=== PATIENT | female | born 1945 | race African-American/Black ===

== ENCOUNTER 2017-06-29 20:09 | Emergency (ER) | payer OTHER, MEDICARE ==
[~2017-06-29] VITALS: Ht 162.6 cm; Wt 93.0 kg
[~2017-06-29 20:09] MED LIST: ASPI-612 PO; ESTROTEST PO; EZET10TA18 PO; LISI10TA2 PO; MECL12.52 PO; METF500T9 PO; MULT-212 PO; VALS160T3 PO
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
[2017-06-29 21:28] LABS: BILIRUBIN,URINE NEG (NEG); CLARITY,URINE CLEAR; COLOR,URINE YELLOW; GLUCOSE,URINE NEG (NEG); NITRITE,URINE NEG (NEG); UROBILINOGEN,URINE 1 mg/dL (0.2 mg/dL)
[2017-06-29 21:29] LABS: BACTERIA,URINE MOD /HPF (0-FEW); SQUAMOUS EPITHELIAL CELL,UR MANY /LPF
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
[2017-06-29] MEDS ORDERED: CEPH-264 PO (21:47)
[2017-06-29] MEDS ORDERED: HYDR-79 PO (21:48)
[2017-06-29 21:59] VITALS: BP 150/61
== END 2017-06-29 22:00 | disposition home or self-care (01) ==
LOC: ER 20:09
DX: S13.9XXA Sprain of joints and ligaments of unspecified parts of neck, initial encounter (principal); E78.00 Pure hypercholesterolemia, unspecified; I10 Essential (primary) hypertension; E11.9 Type 2 diabetes mellitus without complications; I25.10 Atherosclerotic heart disease of native coronary artery without angina pectoris; H54.62 Unqualified visual loss, left eye, normal vision right eye; N39.0 Urinary tract infection, site not specified; Z86.73 Personal history of transient ischemic attack (TIA), and cerebral infarction without residual deficits; Z88.8 Allergy status to other drugs, medicaments and biological substances; V43.62XA Car passenger injured in collision with other type car in traffic accident, initial encounter; Y93.89 Activity, other specified; Y99.8 Other external cause status; Y92.488 Other paved roadways as the place of occurrence of the external cause
CPT/HCPCS: 72125; 81001; 87086; 99285-25

== ENCOUNTER → 2017-09-12 | Outpatient (CLI) | payer MEDICARE, OTHER ==
[~2017-09-12] MED LIST changes: +CEPH-264 PO; +HYDR-79 PO
[2017-09-12 12:29] LABS: ALBUMIN 3.6 g/dL (3.4-5.0); ALBUMIN/GLOBULIN RATIO 0.9 (1.0-1.7); CALCIUM 9.6 mg/dL (8.5-10.1); GFR 66.5; TOTAL BILIRUBIN 0.9 mg/dL (0.2-1.0); TOTAL PROTEIN 7.5 g/dL (6.4-8.2)
[2017-09-13 02:13] LABS: HEMOGLOBIN A1C 7.5 % (4.8-5.6)
== END | disposition home or self-care (01) ==
LOC: LAB 11:05
PROVIDERS: ATTEND Nurse Practitioner
DX: E78.5 Hyperlipidemia, unspecified (principal); I10 Essential (primary) hypertension; E11.9 Type 2 diabetes mellitus without complications; E78.00 Pure hypercholesterolemia, unspecified; Z83.3 Family history of diabetes mellitus; Z90.49 Acquired absence of other specified parts of digestive tract; Z90.722 Acquired absence of ovaries, bilateral; Z90.710 Acquired absence of both cervix and uterus
CPT/HCPCS: 36415; 80053; 80061; 83036

== ENCOUNTER 2018-01-12 10:58 | Inpatient (IN) | payer MEDICARE, BC ==
[~2018-01-12] VITALS: Ht 162.6 cm; Wt 93.7 kg
[~2018-01-12 10:58] MED LIST changes: +HYDR-1179 PO; -HYDR-79 PO
--- NOTE | 2018-01-12 11:42 | PHYS DOC ---
Past History Past Medical History: Arrhythmia, Diabetes, High Cholesterol, Hypertension Past Surgical History: Appendectomy, Cholecystectomy, Hysterectomy Alcohol Use: None Drug Use: None Adult General Chief Complaint Chief Complaint: CHEST PAIN HPI HPI Patient is a 72 year old female with history of hypertension, dyslipidemia, diabetes, family history of coronary artery disease who sent from her primary care physician office because of chest pain. Patient complaining of sudden onset of substernal pain since this morning as a constant aching pain pain with episodes of pressure pain that last for a few seconds and repeated frequently with radiation to left shoulder. Patient complaining of shortness of breath without palpitation, nausea, fever and chills, dizziness. Patient was seen by her primary care physician and after EKG and 324 mg of aspirin sent to ER for more evaluation. Patient denies history of coronary artery disease. Review of Systems Review of Systems Constitutional: Denies fever or chills [] Eyes: Denies change in visual acuity, redness, or eye pain [] HENT: Denies nasal congestion or sore throat [] Respiratory: Denies cough or shortness of breath [] Cardiovascular: No additional information not addressed in HPI [] GI: Denies abdominal pain, nausea, vomiting, bloody stools or diarrhea [] : Denies dysuria or hematuria [] Musculoskeletal: Denies back pain or joint pain [] Integument: Denies rash or skin lesions [] Neurologic: Denies headache, focal weakness or sensory changes [] Endocrine: Denies polyuria or polydipsia [] All other systems were reviewed and found to be within normal limits, except as documented in this note. Current Medications Current Medications Current Medications Medications (Trade) Dose Ordered Sig/Gerald Start Time Stop Time Status Last Admin Dose Admin Famotidine (Pepcid Vial) 20 mg 1X ONCE 01/12/18 12:00 01/12/18 12:01 01/12/18 11:36 20 MG Allergies Allergies Allergies Coded Allergies Type Severity Reaction Last Updated Verified Cvevwbo-Dua-Joo Reductase Inhibitor Allergy Intermediate 01/12/18 Yes Physical Exam Physical Exam Constitutional: Well developed, well nourished, mild distress, non-toxic appearance. [] HENT: Normocephalic, atraumatic, oropharynx moist, no oral exudates, nose normal. [] Eyes: PERRLA, EOMI, conjunctiva normal, no discharge. [] Neck: Normal range of motion, no tenderness, supple, no stridor. [] Cardiovascular:Heart rate regular rhythm, no murmur [] Lungs & Thorax: Bilateral breath sounds clear to auscultation [] Abdomen: Bowel sounds normal, soft, no tenderness, no masses, no pulsatile masses. [] Skin: Warm, dry, no erythema, no rash. [] Back: No tenderness, no CVA tenderness. [] Extremities: No tenderness, no cyanosis, no clubbing, ROM intact, no edema. [] Neurologic: Alert and oriented X 3, normal motor function, normal sensory function, no focal deficits noted. [] Psychologic: Affect normal, judgement normal, mood normal. [] Current Patient Data Vital Signs Vital Signs Date Time Temp Pulse Resp B/P (MAP) Pulse Ox O2 Delivery O2 Flow Rate FiO2 01/12/18 11:17 97.6 72 18 98 Room Air EKG EKG KG interpreted by me. EKG at 1110 showed sinus bradycardia at rate of 49, normal interval and axis, poor R-wave progress in anteroseptal leads, no acute ST and T-wave abnormalities Radiology/Procedures Radiology/Procedures [address] [address] IMAGING REPORT Signed PATIENT: ZACHARIAH RIOS ACCOUNT: [id number] : 1945 LOCATION: ER AGE: 72 SEX: F EXAM STATUS: REG ER ORD. PHYSICIAN: CHUY ANTHONY MD REASON: chest pain PROCEDURE: PORTABLE CHEST 1V Portable chest, 01/12/2018: HISTORY: Chest pain Comparison is made to a study from 02/12/2016. The heart size and pulmonary vascularity are normal. There is tortuosity of the thoracic aorta. No pulmonary infiltrate is seen. There is no evidence of pleural fluid. IMPRESSION: 1. Mild aortic ectasia. 2. No acute cardiopulmonary abnormality is detected. Electronically signed by: Deacon Rivas MD (01/12/2018 11:44 AM) [facility] DICTATED AND SIGNED BY: DEACON RIVAS MD DATE: 01/12/18 [id number] CC: CHUY ANTHONY MD; LUCITA NORTH MD ~ Course & Med Decision Making Course & Med Decision Making Pertinent Labs and Imaging studies reviewed. (See chart for details) Evaluation of patient in ER showed 72-year-old female patient with multiple cardiac risk factors and complaining of chest pain since this morning and left arm pain since yesterday. EKG did not show acute ST and T-wave abnormalities and patient had unremarkable labs. Patient denied chest pain in ER. Dr. Parker accepted admission at 1130. Dragon Disclaimer Dragon Disclaimer This electronic medical record was generated, in whole or in part, using a voice recognition dictation system. Departure Departure: Impression: Primary Impression: Acute chest pain Disposition: ADMITTED INPATIENT (at 11:30) Admitting Physician: Tarah Parker (accepted admission at 11:30) Condition: IMPROVED Referrals: LUCITA NORTH MD (PCP) CHUY ANTHONY MD Jan 12, 2018 11:42
--- NOTE | 2018-01-12 11:44 | EKG ---
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
[2018-01-12 11:47] LABS: BASO % 0 % (0-3); EOS # 0.2 x10^3/uL (0.0-0.7); EOS % 2 % (0-3); HEMATOCRIT 43.1 % (36.0-47.0); HEMOGLOBIN 14.2 g/dL (12.0-15.5); LYMPH # 1.2 x10^3/uL (1.0-4.8); LYMPH % 18 % (24-48); MEAN CORPUSCULAR HEMOGLOBIN 28 pg (25-35); MEAN CORPUSCULAR HGB CONC 33 g/dL (31-37); MEAN CORPUSCULAR VOLUME 85 fL (79-100); MONO # 0.4 x10^3/uL (0.0-1.1); MONO % 7 % (0-9); NEUT # 4.8 x10^3uL (1.8-7.7); NEUT % 73 % (31-73); PLATELET COUNT 157 x10^3/uL (140-400); RED BLOOD COUNT 5.06 x10^6/uL (3.50-5.40); RED CELL DISTRIBUTION WIDTH 13.8 % (11.5-14.5); WHITE BLOOD COUNT 6.6 x10^3/uL (4.0-11.0)
--- NOTE | 2018-01-12 11:48 | RAD ---
Portable chest, 01/12/2018: HISTORY: Chest pain Comparison is made to a study from 02/12/2016. The heart size and pulmonary vascularity are normal. There is tortuosity of the thoracic aorta. No pulmonary infiltrate is seen. There is no evidence of pleural fluid. IMPRESSION: 1. Mild aortic ectasia. 2. No acute cardiopulmonary abnormality is detected. Electronically signed by: Deacon Guaman MD (01/12/2018 11:44 AM) [facility]
[2018-01-12] MEDS ORDERED: FAMOTIDINE 20 MG/2 ML VIAL IVP ONE (12:00)
[2018-01-12 12:06] LABS: ALBUMIN 3.6 g/dL (3.4-5.0); CALCIUM 9.4 mg/dL (8.5-10.1); CREATININE 0.9 mg/dL (0.6-1.0); GFR 74.9; POTASSIUM 4.3 mmol/L (3.5-5.1); TOTAL BILIRUBIN 0.6 mg/dL (0.2-1.0); TOTAL PROTEIN 7.3 g/dL (6.4-8.2)
[2018-01-12] MEDS ORDERED: LISI1TAB3 PO (13:07)
[2018-01-12] MEDS ORDERED: UBID100C26 PO (13:07)
[2018-01-12] MEDS ORDERED: ROSU10TA25 PO (13:07)
[2018-01-12 13:17] VITALS: BP 134/83
[2018-01-12 15:18] VITALS: BP 111/73
--- NOTE | 2018-01-12 15:51 | HP ---
ADMIT DATE: 01/12/2018 HISTORY OF PRESENT ILLNESS: The patient is a 72-year-old -N[place]e female patient who came to the Emergency Room complaining of burning retrosternal chest pain that she describes as burning associated with diaphoresis. She stated that her complaint started the night before with tingling and numbness in her left arm that apparently has eventually subsided. This morning, she also developed retrosternal chest pain that she describes as burning and had an episode of diaphoresis at home and again when she went to shopping at [employer] from there she drove her car to her primary care physician, Dr. Dave, who did an EKG and gave her 4 baby aspirin and sent her to the Emergency Room of [facility] where she was evaluated. Her EKG showed that she was in sinus bradycardia at a rate of 49 beats per minute with poor R-wave progression in anteroseptal leads, no acute ST-T changes. She apparently had her first set of cardiac enzyme showed that her troponin to be less than 0.017 and was admitted to do two more sets of cardiac enzyme, checked her fasting lipid profile and consult the mumps developer. PAST MEDICAL HISTORY: Significant for hypertension, type 2 diabetes mellitus, and hyperlipidemia as well as osteoarthritis. 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 PAST SURGICAL HISTORY: Significant for hysterectomy, cholecystectomy, appendectomy, and colonoscopy. ALLERGIES: She is allergic to STATINS. She developed leg cramps. MEDICATIONS: She is currently on following medications: She is on Crestor 10 mg at bedtime, lisinopril/hydrochlorothiazide 10/12.5 mg once a day, aspirin 81 mg once a day, metformin 500 mg daily with breakfast, multivitamin with mineral 1 tablet once a day, CoQ10 100 mg once a day and Estratest 1 capsule p.o. daily as hormone replacement therapy. FAMILY HISTORY: She has 7 sisters and 7 brothers, all , except 3 brothers and 2 sisters. Her father of aortic aneurysm rupture at the age of 59. Mother at age of 85 because of old age, according to her. SOCIAL HISTORY: She is , has 1 son and 1 daughter. She does not smoke, drink alcohol, or use any recreational drugs. 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 REVIEW OF SYSTEMS: The patient was born blind in her left eye; however, denied any cataract, glaucoma, or macular degeneration. She did complain of vertigo occasionally. She has dysphagia to solids, although she did very well on her video swallowing evaluation. She denied any nausea, vomiting, diarrhea, or constipation. Denied any hematemesis, melena, or hematochezia. Denied any dysuria, frequency, or hematuria. Did complain of chest pain, but denied any orthopnea or paroxysmal nocturnal dyspnea. Denied any cough, phlegm, or hemoptysis. Denied any chills, rigors, or fever. PHYSICAL EXAMINATION: GENERAL: On examining her, she looked well and was clearly in no apparent respiratory distress. No pallor, jaundice, cyanosis, or thyromegaly. No jugular venous distention. No limb edema. VITAL SIGNS: Her heart rate was 72, blood pressure was 127/70, temperature was 97.6, respiratory rate was 16, and oxygen saturation was 98%. HEAD, EYES, EARS, NOSE, AND THROAT: Normocephalic, atraumatic. NECK: Supple. HEART: Showed normal first and second heart sounds. No gallop, rub, or murmur. CHEST: Clear to auscultation. No crepitation or rhonchi. ABDOMEN: Distended, soft, nontender. NEUROLOGIC: She is blind in her left eye. Otherwise, all her cranial nerves are intact. She moves all her extremities without difficulty. She ambulates without assistance or assistive devices. LABORATORY DATA AND IMAGING: Her lab work on admission showed a white cell count of 6600, hemoglobin 14, hematocrit 43, MCV 85, and a platelet count of 157,000 with normal amount of differential. Her serum sodium was 141, potassium 4.3, chloride 103, bicarbonate 28, anion gap of 10, BUN 12, creatinine 0.9, estimated GFR is 75 mL per minute. Her glucose was 128, calcium was 9.4, magnesium was 2. Total bilirubin, AST, ALT, alkaline phosphatase were normal. Her first set of troponin was less than 0.017. Her total protein was 7.3, albumin 3.6, and lipase was 381,000. Her prothrombin time was 9.7, INR of 1. Her EKG showed that she was in sinus bradycardia with a heart rate of 49, normal intervals and axis. Poor R-wave progression in anteroseptal leads. She has no acute ST-T changes. PLAN: To obviously continue with all her current medication. We will do 2 more sets of cardiac enzyme, check her fasting lipid profile and consult the cardiology team with worth noting that the patient is followed by the [facility] Cardiology team and had a stress test done about a year ago that was apparently normal. HAN ZHENG MD DR: DOMINICK/elmo JOB#: [id number] / [id number]
[2018-01-12 19:56] VITALS: BP 123/76
[2018-01-12 22:47] VITALS: BP 125/84
[2018-01-13 05:26] VITALS: BP 103/62
[2018-01-13] MEDS ORDERED: metFORMIN 500 MG TABLET PO SCH (08:00)
[2018-01-13] MEDS ORDERED: ASPIRIN 81 MG TAB.CHEW PO SCH (08:00)
--- NOTE | 2018-01-13 08:10 | PDOC2 ---
CONSULT Date of Admission DATE: 01/13/18 TIME: 08:10 Reason for Consult: Chest pain Referring Physician: Dr. Parker Chief Complaint Chest pain Source: Chart review, Patient History of Present Illness 72-year-old female presented with retrosternal chest pain that she described as burning sensation associated with diaphoresis. She denied any orthopnea/PND, palpitations or syncope. She is presently chest pain-free. Past Medical History Hypertension Hyperlipidemia Diabetes mellitus type 2 Osteoarthritis Past Surgical History Hysterectomy Cholecystectomy Appendectomy Family History Aortic aneurysm Social History Patient denied any smoking, alcohol or drug use Current Medications Current Medications Famotidine (Pepcid Vial) 20 mg 1X ONCE IVP Last administered on 01/12/18at 11: 36; Start 01/12/18 at 12:00; Stop 01/12/18 at 12:01; Status DC Aspirin (Children'S Aspirin) 81 mg DAILYWBKFT PO ; Start 01/13/18 at 08:00 Lisinopril (Prinivil) 10 mg DAILY PO ; Start 01/13/18 at 09:00 Metformin HCl (Glucophage) 500 mg DAILYWBKFT PO ; Start 01/13/18 at 08:00 Multivitamins/ Calcium (Thera-M Plus) 1 tab DAILY PO ; Start 01/13/18 at 09:00 Non-Formulary Medication (Rosuvastatin Calcium ) 10 mg DAILY PO ; Start at 09:00 Coenzyme Q10 (Coenzyme Q10) 100 mg DAILY PO ; Start 01/13/18 at 09:00 Non-Formulary Medication ([Estrotest] ) 1 cap DAILY PO ; Start 01/13/18 at 09:00 Hydrochlorothiazide (Microzide) 12.5 mg DAILY PO ; Start 01/13/18 at 09:00 Active Scripts Active Reported Rosuvastatin Calcium 10 Mg Tablet 10 Mg PO DAILY Coq-10 (Ubidecarenone) 100 Mg Capsule 100 Mg PO DAILY Lisinopril-Hctz 10-12.5 Mg Tab (Lisinopril/Hydrochlorothiazide) 1 Each Tablet 1 Tab PO DAILY Women's Daily Multivitamin (Multivit With Calcium,Iron,Min) 1 Each Tablet 1 Each PO DAILY LAST DOSE GIVEN: DATE: TODAY TIME: AM NEXT DOSE DUE: DATE: TOMORROW TIME: AM [Estrotest] 1 Cap PO DAILY LAST DOSE GIVEN: DATE: TIME: NEXT DOSE DUE: DATE: TOMORROW TIME: AM Aspirin Ec (Aspirin) 81 Mg Tablet.dr 81 Mg PO DAILY LAST DOSE GIVEN: DATE: TODAY TIME: AM NEXT DOSE DUE: DATE: TOMORROW TIME: AM Metformin Hcl Er (Metformin Hcl) 500 Mg Tab.er.24h 500 Mg PO DAILYWBKFT LAST DOSE GIVEN: DATE: TODAY TIME: WITH BREAKFAST NEXT DOSE DUE: DATE: TOMORROW TIME: WITH BREAKFAST Allergies: Coded Allergies: Qnsrdkl-Ual-Umq Reductase Inhibitor (Verified Allergy, Intermediate, ) PSYCHOLOGICAL ROS: No: Hallucinations Eyes: No: Loss of vision HEENT: No: Epistaxis Respiratory: No: Hemoptysis, Shortness of breath Cardiovascular: yes: Chest Pain; No: Palpitations, Paroxysmal Noc. Dyspnea Gastrointestinal: No: Vomiting, Diarrhea Genitourinary: No: Dysuria, Incontinence Neurological: No: Seizures Skin: No: Rash General: Alert, Oriented X3 HEENT: Atraumatic, PERRLA Lungs: Clear to auscultation Heart: Regular rate Abdomen: Soft, No tenderness Extremities: No edema Neuro: Normal gait Psych/Mental Status: Mood NL VITALS Vital Signs Date Time Temp Pulse Resp B/P (MAP) Pulse Ox O2 Delivery O2 Flow Rate FiO2 01/13/18 05:26 97.5 56 18 103/62 (76) 97 Room Air Labs Laboratory Tests Test 01/12/18 11:30 01/12/18 12:54 01/12/18 15:02 01/12/18 17:25 White Blood Count 6.6 x10^3/uL (4.0-11.0) Red Blood Count 5.06 x10^6/uL (3.50-5.40) Hemoglobin 14.2 g/dL (12.0-15.5) Hematocrit 43.1 % (36.0-47.0) Mean Corpuscular Volume 85 fL (79-100) Mean Corpuscular Hemoglobin 28 pg (25-35) Mean Corpuscular Hemoglobin Concent 33 g/dL (31-37) Red Cell Distribution Width 13.8 % (11.5-14.5) Platelet Count 157 x10^3/uL (140-400) Neutrophils (%) (Auto) 73 % (31-73) Lymphocytes (%) (Auto) 18 % (24-48) Monocytes (%) (Auto) 7 % (0-9) Eosinophils (%) (Auto) 2 % (0-3) Basophils (%) (Auto) 0 % (0-3) Neutrophils # (Auto) 4.8 x10^3uL (1.8-7.7) Lymphocytes # (Auto) 1.2 x10^3/uL (1.0-4.8) Monocytes # (Auto) 0.4 x10^3/uL (0.0-1.1) Eosinophils # (Auto) 0.2 x10^3/uL (0.0-0.7) Basophils # (Auto) 0.0 x10^3/uL (0.0-0.2) Prothrombin Time 9.7 SEC (9.4-11.4) Prothromb Time International Ratio 1.0 (0.9-1.1) Sodium Level 141 mmol/L (136-145) Potassium Level 4.3 mmol/L (3.5-5.1) Chloride Level 103 mmol/L (98-107) Carbon Dioxide Level 28 mmol/L (21-32) Anion Gap 10 (6-14) Blood Urea Nitrogen 12 mg/dL (7-20) Creatinine 0.9 mg/dL (0.6-1.0) Estimated GFR (Cockcroft-Gault) 74.9 BUN/Creatinine Ratio 13 (6-20) Glucose Level 128 mg/dL (70-99) Calcium Level 9.4 mg/dL (8.5-10.1) Magnesium Level 2.0 mg/dL (1.8-2.4) Total Bilirubin 0.6 mg/dL (0.2-1.0) Aspartate Amino Transf (AST/SGOT) 14 U/L (15-37) Alanine Aminotransferase (ALT/SGPT) 19 U/L (14-59) Alkaline Phosphatase 84 U/L (46-116) Creatine Kinase 101 U/L (26-192) Troponin I Quantitative < 0.017 ng/mL (0-0.055) < 0.017 ng/mL (0-0.055) < 0.017 ng/mL (0-0.055) WX-Crs-O-Type Natriuretic Peptide 43 pg/mL (0-124) Total Protein 7.3 g/dL (6.4-8.2) Albumin 3.6 g/dL (3.4-5.0) Albumin/Globulin Ratio 1.0 (1.0-1.7) Lipase 381 U/L (73-393) Glucose (Fingerstick) 106 mg/dL (70-99) Test 01/12/18 19:31 01/13/18 07:37 Glucose (Fingerstick) 203 mg/dL (70-99) 163 mg/dL (70-99) Assessment/Plan 1. Chest pain with atypical features: Myocardial infarction was ruled out. Patient has apparently had cardiac catheterization in 2001 that showed only mild coronary artery disease. Plan for 2-D echocardiogram and Lexiscan nuclear stress test as an outpatient. 2. Hypertension: Controlled 3. Hyperlipidemia: Statins 4. Diabetes mellitus type 2: Treated per IM Thank you for your consultation SANTOS VILLALOBOS MD Jan 13, 2018 08:10
[2018-01-13] MEDS ORDERED: hydroCHLOROthiazide 12.5 MG CAPSULE PO SCH (09:00)
[2018-01-13] MEDS ORDERED: ROSUVASTATIN CALCIUM 10 MG PO SCH (09:00)
[2018-01-13] MEDS ORDERED: LISINOPRIL 10 MG TABLET PO SCH (09:00)
[2018-01-13] MEDS ORDERED: UBIDECARENONE 50 MG CAPSULE. PO SCH (09:00)
[2018-01-13] MEDS ORDERED: MULTIVITAMIN with MINERAL TABLET. PO SCH (09:00)
[2018-01-13] MEDS ORDERED: ESTROTEST PO SCH (09:00)
[2018-01-13 10:39] VITALS: BP 111/74
[2018-01-13] MEDS ORDERED: PANT40TA3 PO (12:59)
--- NOTE | 2018-01-13 16:21 | DS ---
DATE OF DISCHARGE: 01/13/2018 HOSPITAL COURSE: The patient is a 72-year-old -[place] female patient, who was admitted with chest pain that she describes as burning sensation associated diaphoresis, denied any orthopnea, paroxysmal nocturnal dyspnea. Denied any palpitation or syncope. Her EKG was unremarkable and she has 3 sets of cardiac enzymes showed no evidence of myocardial infarction. All her troponins were less than 0.017. She was seen in consultation by the mid level practitioner, who basically recommended stress test as an outpatient. PHYSICAL EXAMINATION: GENERAL: When I saw her this afternoon, she was chest pain free and on examining her, she looked well and was clearly in no apparent respiratory distress. VITAL SIGNS: Her heart rate was 64, blood pressure was 111/74, temperature was 97.5, respiratory rate 20, and oxygen saturation was 95%. HEAD, EYES, EARS, NOSE AND THROAT: Showed normocephalic, atraumatic. NECK: Supple. HEART: Showed normal first and second heart sounds with no gallop, rub or murmur. CHEST: Clear to auscultation. No crepitation or rhonchi. ABDOMEN: Distended, soft, nontender. No guarding or rigidity. No organomegaly. All hernial orifice intact. Bowel sounds normal. NEUROLOGIC: She is blind in her left eye. Otherwise, all the cranial nerves intact. She moves extremities without difficulty. She ambulates without assistance or assistive devices. LABORATORY DATA: Showed that her serum sodium was 141, potassium 4.3, chloride 103, bicarbonate 28, anion gap of 10, BUN 12, creatinine 0.9, estimated GFR was 75 mL per minute. Her glucose 128, calcium 9.4, magnesium 2. Total bilirubin, AST, ALT, alkaline phosphatase were normal. Her total protein was 7.3, albumin 3.6. Lipase was 381. Her white cell count was 6600, hemoglobin 14, hematocrit 43, MCV 85 and platelet count of 157,000. Her prothrombin time was 9.7, INR of 1. DISCHARGE MEDICATIONS: The patient was discharged home to continue on her aspirin 81 mg once a day, Estratest 1 capsule daily, lisinopril/hydrochlorothiazide 10/12.5 mg once a day, metformin 500 mg daily with breakfast, multivitamin with calcium once a day, Crestor 10 mg once a day, and CoQ10 100 mg daily. FINAL DISCHARGE DIAGNOSES: 1. Chest pain with atypical features, myocardial infarction was ruled out. Apparently, the patient has cardiac catheterization in 2001 that showed only mild coronary artery disease. She was seen by the mid level practitioner and the plan is to 2-dimensional echocardiogram and Lexiscan, nuclear stress test as an outpatient. 2. Hypertension, well controlled. 3. Hyperlipidemia. 4. Type 2 diabetes. HAN ZHENG MD DR: DOMINICK/elmo JOB#: [id number] / [id number]
== END 2018-01-13 14:05 | disposition home or self-care (01) | DRG 313 ==
LOC: ER 10:58 → 1 SOUTH 11:50
PROVIDERS: ADMIT Internal Medicine; ATTEND Internal Medicine
DX: R07.89 Other chest pain (principal); E11.9 Type 2 diabetes mellitus without complications; E78.00 Pure hypercholesterolemia, unspecified; E78.5 Hyperlipidemia, unspecified; H54.62 Unqualified visual loss, left eye, normal vision right eye; I10 Essential (primary) hypertension; M19.90 Unspecified osteoarthritis, unspecified site; I25.10 Atherosclerotic heart disease of native coronary artery without angina pectoris; I77.819 Aortic ectasia, unspecified site; Z82.49 Family history of ischemic heart disease and other diseases of the circulatory system; Z90.710 Acquired absence of both cervix and uterus; Z90.49 Acquired absence of other specified parts of digestive tract; Z79.899 Other long term (current) drug therapy
CPT/HCPCS: 36415; 71045; 80053; 80061; 82550; 82947; 83690; 83735; 83880; 84484; 85025; 85610; 93005; 96374; J3490; 99285-25

== ENCOUNTER → 2018-02-01 | Outpatient (CLI) | payer MEDICARE, BC, OTHER ==
[2018-01-13 10:39] VITALS: BP 111/74
[~2018-02-01] MED LIST changes: +LISI1TAB3 PO; +PANT40TA3 PO; +REGADENOSON 0.4 MG/5 ML DISP.SYRIN. IV ONE; +ROSU10TA25 PO; +UBID100C26 PO
--- NOTE | 2018-02-01 13:39 | RAD ---
MR#: [id number] Date of Study: 02/01/2018 Ordering Physician: STEPHANIE KAUFMAN, Referring Physician: ROLDAN WEBBER Tech: BETTIE Jackson ARRT (Hanh) (N) APPROVED REPORT Test Type: Pharmacological Stress Nurse/Tech: YOLETTE Webber Test Indications: Chest pain Cardiac History: Hypertension, Diabetes Medications: See Electronic Medical Record Medical History: See Electronic Medical Record Resting ECG: SR, NS CHANGES Resting Heart Rate: 53 bpm Resting Blood Pressure: 149/82mmHg Pretest Chest Pain: None Nurse/Tech Notes SR Consent: The procedure was explained to the patient in lay terms. Informed consent was witnessed. Sabino eout was entered into [employer]. History and Stress Test performed by BETTIE Jackson ARRT (Hanh) (N) Pharm. Details Pharmacologic stress testing was performed using 0.4mg per 5ml of regadenoson given intravenously ove r 7-10 seconds. Stress Symptoms CHEST PAIN, SOB POST EXERCISE Reason for Termination: Infusion complete Target HR: No Max HR: 94 bpm 74% of Maximum Predicted HR: 127 bpm Exercise duration: 6 min:sec, Stage Max Blood Pressure: 160/72mmHg Blood Pressure response to exercise: Normal blood pressure response during stress. Chest Pain: Yes. ST Change: No. INTERPRETATION Stress EKG Conclusion: Baseline EKG showed sinus rhythm. No ischemic changes at peak stress. Few PV C's without any significant arrhythmias. Imaging Protocol IMAGE PROTOCOL: Rest Tc-99m/stress Tc-99m 1 day Rest: Stress: Viability: Radiopharm.Tc99m YihfmuajvQo96z Sestamibi Rirl37zAf 31mCi Img Date 02/01/2018 02/01/2018 Inj-Img Kbwv24xad. 60min. Rest Admin Site:IV - Right AntecubitalAdministrator: BETTIE Jackson ARRT (Hanh)(N) Stress Admin Site: IV - Right AntecubitalAdministrator: BETTIE Jackson ARRT (Hanh)(N) STRESS DATA End Diast. Vol.82.0mlAv. Heart Rate61.0bpm LVEDV index BSA1.0mlCardiac Output0.1L/min End Syst. Vol.23.0mlCO Index BSA3.6L/min LVESV index BSA0.0mlMyocardial Jpck766.0g Eject. Qkxnojyu26.0% Stress Rates Pk. Fill Rate2.06EDV/secLVtime Pk. Fill 307.92msec Pk. Empty Rate3.91ESV/secLVtime Pk. Bzqse047.76msec /3 Pk. Fill1.28EDV/sec Stress Scores Regional WT0.00Summed WT7.00 Regional WM0.00Summed WM0.00 Study quality was good. Left Ventricular size was Normal at Rest and Stress. Lung uptake was . Left Ventricular ejection fraction is 72%. The rest and stress images show normal perfusion, normal contraction and thickening. LV Perf. Quant 17 Seg. SSS1.00 17 Seg. SRS2.00 17 Seg. SDS0.00 Stress Defect Extent (% LAD)0.00Rest Defect Extent (% LAD)9.40Rev. Defect Extent (% LAD)0.00 Stress Defect Extent (% LCX) 0.00Rest Defect Extent (% LCX)0.00Rev. Defect Extent (% LCX)0.00 Stress Defect Extent (% RCA)0.00Rest Defect Extent (% RCA)0.00Rev. Defect Extent (% RCA)0.00 Stress Defect Extent (% CLIVE)0.00Rest Defect Extent (% CLIVE)3.50Rev. Defect Extent (% CLIVE)0.00 Conclusion 1. Regadenoson cardioisotope stress test did not show any evidence of ischemia or infarct. 2. Normal left ventricular systolic function with ejection fraction calculated at 72%. 3. Low risk for cardiac events. Signed by : Olivier Lima, Electronically Approved : 02/01/2018 13:37:39
== END | disposition home or self-care (01) ==
LOC: NM 08:17
PROVIDERS: ATTEND Nurse Practitioner
DX: R07.89 Other chest pain (principal); I10 Essential (primary) hypertension; E11.9 Type 2 diabetes mellitus without complications
CPT/HCPCS: 78452; 93017; 96374; 96375; 96376; A9500; J2785

== ENCOUNTER → 2018-02-20 | Outpatient (CLI) | payer MEDICARE, BC, OTHER ==
[~2018-02-20] MED LIST changes: -REGADENOSON 0.4 MG/5 ML DISP.SYRIN. IV ONE
--- NOTE | 2018-02-20 14:36 | CARD ---
MR#: [id number] Date of Study: 02/20/2018 Ordering Physician: SANTOS LIMA, Referring Physician: SANTOS LIMA Tech: Iwona Estes RDCS APPROVED REPORT EXAM: Two-dimensional and M-mode echocardiogram with Doppler and color Doppler. Other Information Quality : AverageHR: 58bpm Rhythm : NSR INDICATION Chest Pain 2D DIMENSIONS RVDd2.7 (2.9-3.5cm)Left Atrium(2D)3.3 (1.6-4.0cm) IVSd0.9 (0.7-1.1cm)Aortic Root(2D)2.9 (2.0-3.7cm) LVDd4.1 (3.9-5.9cm)LVOT Diameter2.0 (1.8-2.4cm) PWd0.8 (0.7-1.1cm)LVDs2.2 (2.5-4.0cm) FS (%) 46.8 %SV59.7 ml LVEF(%)78.6 (>50%) M-Mode DIMENSIONS Left Atrium(MM)3.64 (2.5-4.0cm)Aortic Root3.23 (2.2-3.7cm) Aortic Valve AoV Peak Jj.113.1cm/sAoV VTI25.8cm AO Peak GR.5.1mmHgLVOT Peak Jj.94.5cm/s LVOT VTI 23.74cmAO Mean GR.3mmHg SJ (VMAX)2.51pf9CRP (VTI)2.94cm2 Mitral Valve MV E Jvbrivmz66.8cm/sMV DECEL KJPM841rn MV A Iqkdgyrn45.8cm/sE/A Ratio0.8 MV A Zuuklclj020sh Pulmonary Valve PV Peak Ltgoajen41.3cm/sPV Peak Grad.1mmHg Tricuspid Valve TR P. Gmpwnexg070zh/sRAP SNDECBNR3gfBs TR Peak Gr.69viLbKUBH04jnKq Pulmonary Vein S1 Erowyskc00.7cm/sD2 Ozmfmxhh55.2cm/s LEFT VENTRICLE The left ventricle is normal size. There is normal left ventricular wall thickness. The left ventricu lar systolic function is normal. The Ejection Fraction is 65-70%. There is normal LV segmental wall m otion. Transmitral Doppler flow pattern is Grade I-abnormal relaxation pattern. RIGHT VENTRICLE The right ventricle is normal size. There is normal right ventricular wall thickness. The right ventr icular systolic function is normal. ATRIA The left atrium size is normal. The right atrium size is normal. The interatrial septum is intact wit h no evidence for an atrial septal defect or patent foramen ovale as noted on 2-D or Doppler imaging. AORTIC VALVE The aortic valve is normal in structure and function. The aortic valve is trileaflet. Doppler and Col or Flow revealed no significant aortic regurgitation. There is no significant aortic valvular stenosi s. MITRAL VALVE The mitral valve is normal in structure and function. There is no evidence of mitral valve prolapse. There is no mitral valve stenosis. Doppler and Color-flow revealed trace mitral regurgitation. TRICUSPID VALVE The tricuspid valve is normal in structure and function. Doppler and Color Flow revealed mild tricusp id regurgitation. The PA pressure was estimated at 35 mmHg. There is no tricuspid valve prolapse or v egetation. There is no tricuspid valve stenosis. PULMONIC VALVE Pulmonic valve not well visualized. GREAT VESSELS The aortic root is normal in size. The ascending aorta is normal in size. The IVC is normal in size a nd collapses >50% with inspiration. PERICARDIAL EFFUSION There is no evidence of significant pericardial effusion. Critical Notification Critical Value: No <Conclusion> The left ventricular systolic function is normal. The Ejection Fraction is 65-70%. There is normal LV segmental wall motion. Transmitral Doppler flow pattern is Grade I-abnormal relaxation pattern. Trace mitral regurgitation. Mild tricuspid regurgitation. The PA pressure was estimated at 35 mmHg. There is no evidence of significant pericardial effusion. Signed by : Santos Lima, Electronically Approved : 02/20/2018 14:34:42
== END | disposition home or self-care (01) ==
LOC: ECHO 13:56
PROVIDERS: ATTEND Internal Medicine Cardiovascular Disease
DX: I36.1 Nonrheumatic tricuspid (valve) insufficiency (principal); R00.8 Other abnormalities of heart beat
CPT/HCPCS: 93306

== ENCOUNTER → 2018-05-15 | Outpatient (CLI) | payer MEDICARE, BC, OTHER ==
--- NOTE | 2018-05-15 12:33 | RAD ---
EXAM: Dual energy x-ray absorptiometry (DEXA). HISTORY: Postmenopausal female presents for osteoporosis screening. COMPARISON: 08/05/2015. TECHNIQUE: Dual energy x-ray absorptiometry of the lumbar spine and right hip was performed. Calculation of bone mineral density based on standard deviations above or below the expected young adult normal value (T-score) was completed. FINDINGS: The average bone mineral density in the 1st through 4th lumbar vertebrae is 1.159 g/cmxcm, corresponding with a T-score of -0.2. There has been a 0.1% decrease in density of the lumbar spine compared to the prior study. The average total bone mineral density in the left hip is 0.985 g/cmxcm, corresponding with a T-score of 0.2. There has been a 2.0% decrease in density of the left hip compared to the prior study. IMPRESSION: Normal bone mineral density. Note: Definitions established by the World Health Organization: 1. Normal: T-score is -1.0 or above. 2. Osteopenia: T-score is between -1.0 and -2.5 . 3. Osteoporosis: T-score is -2.5 or below. Electronically signed by: Denise Barker MD (05/15/2018 12:30 PM) [facility]
== END | disposition home or self-care (01) ==
LOC: DXRAD 10:45
PROVIDERS: ATTEND Specialist
DX: Z13.820 Encounter for screening for osteoporosis (principal); N95.9 Unspecified menopausal and perimenopausal disorder
CPT/HCPCS: 77080

== ENCOUNTER → 2018-05-15 | Outpatient (CLI) | payer MEDICARE, BC, OTHER ==
--- NOTE | 2018-05-15 17:00 | RAD ---
Examination: CT ABDOMEN PELVIS WO CONTRAST History: Left lower abdomen pain and lower pelvis pain, hematuria. Hx: Hysterectomy, cholecystectomy, appendectomy Comparison/Correlation: 04/23/2015 CT chest abdomen and pelvis with contrast exam Findings: Axial images of the abdomen and pelvis were obtained without contrast. Sagittal and coronal reformatted images were provided. Calcified granuloma involves the anterior left lung base. Several hepatic lesions which appear to represent cysts are present. If you have these may be too small to characterize. Spleen is normal. Pancreas is unremarkable. Adrenal glands are normal. Bilateral renal cysts are present with the largest on the left anteriorly measuring 4.6 cm diameter. Absence of the gallbladder noted. No enlarged abdominal or pelvic lymph nodes. No bowel obstruction. No inflammatory change about the cecum. Moderate to large quantity of stool in the colon noted. Uterus is atrophic or absent. Urinary bladder is unremarkable. Small hiatal hernia is present. L4-5 facet joint degenerative vacuum phenomenon noted. Minimal anterolisthesis of L4 relation L5. Bilateral sclerotic appearance of the sacroiliac joint vacuum phenomenon noted. Impression: Small hiatal hernia. No radiopaque collecting system calculi or evidence of collecting system obstruction. Collecting system mass is of concern, contrast-enhanced IVP urogram may be performed on a nonemergent basis. PQRS Compliance Statement: One or more of the following individualized dose reduction techniques were utilized for this examination: 1. Automated exposure control 2. Adjustment of the mA and/or kV according to patient size 3. Use of iterative reconstruction technique Electronically signed by: Lázaro Dean MD (05/15/2018 4:57 PM) [facility]
== END | disposition home or self-care (01) ==
LOC: CT 16:22
PROVIDERS: ATTEND Physician Assistant
DX: K44.9 Diaphragmatic hernia without obstruction or gangrene (principal); J84.10 Pulmonary fibrosis, unspecified; N28.1 Cyst of kidney, acquired; M43.16 Spondylolisthesis, lumbar region; Z90.49 Acquired absence of other specified parts of digestive tract; Z90.710 Acquired absence of both cervix and uterus
CPT/HCPCS: 74176

== ENCOUNTER → 2018-06-26 | Outpatient (CLI) | payer MEDICARE, BC, OTHER ==
--- NOTE | 2018-06-26 13:35 | RAD ---
CT HEAD WO CONTRAST History: Tension headache Comparison: None. Technique: Noncontrast CT imaging was performed of the head. Exposure: One or more of the following individualized dose reduction techniques were utilized for this examination: 1. Automated exposure control 2. Adjustment of the mA and/or kV according to patient size 3. Use of iterative reconstruction technique. Findings: No acute extra-axial or parenchymal hemorrhage is identified. There is no significant intra-axial mass effect, midline shift, or extra-axial fluid collection. The fang-white differentiation of the major vascular territories is preserved. The ventricles, sulci, and cisterns are within normal limits in size and configuration. The mastoid air cells and the visualized paranasal sinuses are aerated. No acute calvarial abnormality is identified. 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 Impression: 1. No acute intracranial abnormality is identified. Electronically signed by: Miguel Lawrence MD (06/26/2018 1:32 PM) [id number]
== END | disposition home or self-care (01) ==
LOC: CT 12:59
PROVIDERS: ATTEND Specialist
DX: G44.209 Tension-type headache, unspecified, not intractable (principal); H44.522 Atrophy of globe, left eye
CPT/HCPCS: 70450

== ENCOUNTER 2018-07-07 23:53 | Emergency (ER) | payer MEDICARE, BC ==
[~2018-07-07] VITALS: Ht 162.6 cm; Wt 93.0 kg
--- NOTE | 2018-07-07 23:56 | ED.ADGEN ---
Past History Past Medical History: Arrhythmia, Diabetes, High Cholesterol, Hypertension Past Medical History Blind Lt eye since Past Surgical History: Appendectomy, Cholecystectomy, Hysterectomy Alcohol Use: None Drug Use: None Adult General Chief Complaint Chief Complaint ".. My BP was too high tonight.. 228/110.... I took another BP pill and later before I went to bed... it was still 220/118... I called Dr. Lima and he said come in and get checked out... Family is in town.. and probably all the stress of kids and eating out too much.. too much salt... "".. I am a little nauseated... "..." but have not been eating right..." HPI HPI Patient is a 72 year old female who presents with above hx and complaints accelerated HTN. Patient has known hypertension, diabetes, high cholesterol, and cardiac disease. Patient does admit to dietary indiscretions.( Too much salt and calories). Patient states she has been compliant with her blood pressure meds. Patient denies any travel or specific ill contacts. Patient does have some nausea tonight. Patient normally follows with Dr. Dave and follows with Dr. Lima cardiology. Review of Systems Review of Systems Constitutional: Denies fever or chills [] Eyes: Denies change in visual acuity, redness, or eye pain [] HENT: Denies nasal congestion or sore throat [] Respiratory: Denies cough or shortness of breath [] Cardiovascular: No additional information not addressed in HPI [] GI: Denies abdominal pain, , vomiting, bloody stools or diarrhea [] Complaints of nausea : Denies dysuria or hematuria [] Musculoskeletal: Denies back pain or joint pain [] Integument: Denies rash or skin lesions [] Neurologic: Denies headache, focal weakness or sensory changes [] Endocrine: Denies polyuria or polydipsia [] All other systems were reviewed and found to be within normal limits, except as documented in this note. Family History Family History HTN and DM Current Medications Current Medications Current Medications Medications (Trade) Dose Ordered Sig/Gerald Start Time Stop Time Status Last Admin Dose Admin Clonidine HCl (Catapres Tts-2) 1 patch 1X ONCE 07/08/18 00:15 07/08/18 00:16 DC 07/08/18 00:56 1 PATCH Clonidine HCl (Catapres) 0.2 mg 1X ONCE 07/08/18 00:15 07/08/18 00:16 DC 07/08/18 00:57 0.2 MG Lactated Ringer's 1,000 ml @ 100 mls/hr Q10H 07/08/18 00:00 07/08/18 02:38 DC 07/08/18 00:58 100 MLS/HR Allergies Allergies Allergies Coded Allergies Type Severity Reaction Last Updated Verified Vdadohc-Ugg-Sre Reductase Inhibitor Allergy Intermediate 01/12/18 Yes Physical Exam Physical Exam Constitutional: moderately acute distress, non-toxic appearance. [] HENT: Normocephalic, atraumatic, bilateral external ears normal, oropharynx moist, no oral exudates, nose normal. [] Eyes: Pt. Blind in Lt. eye ( ) Neck: Normal range of motion, no tenderness, supple, no stridor. [] Cardiovascular:Heart rate regular rhythm, no murmur, PMI to Lt. Lungs & Thorax: Bilateral breath sounds clear to auscultation [] Abdomen: Bowel sounds normal, soft, no tenderness, no masses, no pulsatile masses. [] Old surgery scars. Skin: Warm, dry, no erythema, no rash. [] Back: No tenderness, no CVA tenderness. [] Extremities: No tenderness, no cyanosis, no clubbing, ROM intact, trace ankle edema. [] Neurologic: Alert and oriented X 3, normal motor function, normal sensory function, no focal deficits noted. [] Psychologic: Affect anxious, judgement normal, mood normal. [] Current Patient Data Vital Signs Vital Signs Date Time Temp Pulse Resp B/P (MAP) Pulse Ox O2 Delivery O2 Flow Rate FiO2 07/08/18 00:57 58 162/77 Lab Results Laboratory Tests Test 07/07/18 00:07 07/07/18 00:40 Urine Collection Type Unknown Urine Color Straw Urine Clarity Hazy Urine pH 7.0 Urine Specific [place] 1.010 Urine Protein Neg (NEG-TRACE) Urine Glucose (UA) 500 mg/dL (NEG) Urine Ketones (Stick) Neg mg/dL (NEG) Urine Blood Small (NEG) Urine Nitrite Neg (NEG) Urine Bilirubin Neg (NEG) Urine Urobilinogen Dipstick 0.2 mg/dL (0.2 mg/dL) Urine Leukocyte Esterase Neg (NEG) Urine RBC 3-5 /HPF (0-2) Urine WBC Occ /HPF (0-4) Urine Squamous Epithelial Cells Occ /LPF Urine Bacteria Few /HPF (0-FEW) White Blood Count 7.3 x10^3/uL (4.0-11.0) Red Blood Count 4.90 x10^6/uL (3.50-5.40) Hemoglobin 13.7 g/dL (12.0-15.5) Hematocrit 42.1 % (36.0-47.0) Mean Corpuscular Volume 86 fL (79-100) Mean Corpuscular Hemoglobin 28 pg (25-35) Mean Corpuscular Hemoglobin Concent 33 g/dL (31-37) Red Cell Distribution Width 14.3 % (11.5-14.5) Platelet Count 159 x10^3/uL (140-400) Neutrophils (%) (Auto) 72 % (31-73) Lymphocytes (%) (Auto) 19 % (24-48) L Monocytes (%) (Auto) 7 % (0-9) Eosinophils (%) (Auto) 2 % (0-3) Basophils (%) (Auto) 0 % (0-3) Neutrophils # (Auto) 5.3 x10^3uL (1.8-7.7) Lymphocytes # (Auto) 1.4 x10^3/uL (1.0-4.8) Monocytes # (Auto) 0.5 x10^3/uL (0.0-1.1) Eosinophils # (Auto) 0.2 x10^3/uL (0.0-0.7) Basophils # (Auto) 0.0 x10^3/uL (0.0-0.2) Prothrombin Time 9.7 SEC (9.4-11.4) Prothrombin Time INR 1.0 (0.9-1.1) PTT 24 SEC (23-33) D-Dimer (Ludy) 0.29 mg/L (0.00-0.50) Sodium Level 140 mmol/L (136-145) Potassium Level 4.2 mmol/L (3.5-5.1) Chloride Level 105 mmol/L (98-107) Carbon Dioxide Level 30 mmol/L (21-32) Anion Gap 5 (6-14) L Blood Urea Nitrogen 11 mg/dL (7-20) Creatinine 0.9 mg/dL (0.6-1.0) Estimated GFR (Cockcroft-Gault) 74.9 Glucose Level 213 mg/dL (70-99) H Calcium Level 9.4 mg/dL (8.5-10.1) Magnesium Level 1.8 mg/dL (1.8-2.4) Total Bilirubin 0.4 mg/dL (0.2-1.0) Direct Bilirubin 0.1 mg/dL (0.0-0.2) Aspartate Amino Transferase (AST) 11 U/L (15-37) L Alanine Aminotransferase (ALT) 20 U/L (14-59) Alkaline Phosphatase 103 U/L (46-116) Creatine Kinase 102 U/L (26-192) Troponin I Quantitative < 0.017 ng/mL (0-0.055) HA-Umg-E-Type Natriuretic Peptide 126 pg/mL (0-124) H Total Protein 7.1 g/dL (6.4-8.2) Albumin 3.5 g/dL (3.4-5.0) Lipase 237 U/L (73-393) EKG EKG My interpretation EKG shows a sinus rhythm at 66 bpm. There is left axis. Some nonspecific T-wave changes. But no findings acute STEMI of contralateral changes.[] Radiology/Procedures Radiology/Procedures My interpretation chest x-ray shows[somewhat tortuous thoracic aorta. No findings acute cardiopulmonary changes. Compared to chest x-ray to x-ray done on 01/12/2018 no acute interval change. Course & Med Decision Making Course & Med Decision Making Pertinent Labs and Imaging studies reviewed. (See chart for details). Pt. currently requesting discharge home. Declines admit at this time. Patient take blood pressure cuff machine in to compare with 's readings. Patient take BP meds as directed. Patient wear clonidine patch until follow-up with primary care. The blood pressure become too low or dizzy remove patch. Return anytime if any concerns. Reduce calorie and salt intake. Documented blood pressures 4 times a day. [] Final Impression Final Impression 1. Accelerated Hypertension[] 2. History of calorie and salt diet non- compliance 3. Diabetes glucose 213 Dragon Disclaimer Dragon Disclaimer This electronic medical record was generated, in whole or in part, using a voice recognition dictation system. Discharge Summary Visit Information Final Diagnosis Problems Medical Problems: (1) Accelerated hypertension Status: Acute Brief Hospital Course Allergies Allergies Coded Allergies Type Severity Reaction Last Updated Verified Wwbbjhc-Hql-Bvg Reductase Inhibitor Allergy Intermediate 01/12/18 Yes Vital Signs Vital Signs Date Time Temp Pulse Resp B/P (MAP) Pulse Ox O2 Delivery O2 Flow Rate FiO2 07/08/18 00:57 58 162/77 Lab Results Laboratory Tests Test 07/07/18 00:07 07/07/18 00:40 Urine Collection Type Unknown Urine Color Straw Urine Clarity Hazy Urine pH 7.0 Urine Specific [place] 1.010 Urine Protein Neg (NEG-TRACE) Urine Glucose (UA) 500 mg/dL (NEG) Urine Ketones (Stick) Neg mg/dL (NEG) Urine Blood Small (NEG) Urine Nitrite Neg (NEG) Urine Bilirubin Neg (NEG) Urine Urobilinogen Dipstick 0.2 mg/dL (0.2 mg/dL) Urine Leukocyte Esterase Neg (NEG) Urine RBC 3-5 /HPF (0-2) Urine WBC Occ /HPF (0-4) Urine Squamous Epithelial Cells Occ /LPF Urine Bacteria Few /HPF (0-FEW) White Blood Count 7.3 x10^3/uL (4.0-11.0) Red Blood Count 4.90 x10^6/uL (3.50-5.40) Hemoglobin 13.7 g/dL (12.0-15.5) Hematocrit 42.1 % (36.0-47.0) Mean Corpuscular Volume 86 fL (79-100) Mean Corpuscular Hemoglobin 28 pg (25-35) Mean Corpuscular Hemoglobin Concent 33 g/dL (31-37) Red Cell Distribution Width 14.3 % (11.5-14.5) Platelet Count 159 x10^3/uL (140-400) Neutrophils (%) (Auto) 72 % (31-73) Lymphocytes (%) (Auto) 19 % (24-48) Monocytes (%) (Auto) 7 % (0-9) Eosinophils (%) (Auto) 2 % (0-3) Basophils (%) (Auto) 0 % (0-3) Neutrophils # (Auto) 5.3 x10^3uL (1.8-7.7) Lymphocytes # (Auto) 1.4 x10^3/uL (1.0-4.8) Monocytes # (Auto) 0.5 x10^3/uL (0.0-1.1) Eosinophils # (Auto) 0.2 x10^3/uL (0.0-0.7) Basophils # (Auto) 0.0 x10^3/uL (0.0-0.2) Prothrombin Time 9.7 SEC (9.4-11.4) Prothromb Time International Ratio 1.0 (0.9-1.1) Activated Partial Thromboplast Time 24 SEC (23-33) D-Dimer (Ludy) 0.29 mg/L (0.00-0.50) Sodium Level 140 mmol/L (136-145) Potassium Level 4.2 mmol/L (3.5-5.1) Chloride Level 105 mmol/L (98-107) Carbon Dioxide Level 30 mmol/L (21-32) Anion Gap 5 (6-14) Blood Urea Nitrogen 11 mg/dL (7-20) Creatinine 0.9 mg/dL (0.6-1.0) Estimated GFR (Cockcroft-Gault) 74.9 Glucose Level 213 mg/dL (70-99) Calcium Level 9.4 mg/dL (8.5-10.1) Magnesium Level 1.8 mg/dL (1.8-2.4) Total Bilirubin 0.4 mg/dL (0.2-1.0) Direct Bilirubin 0.1 mg/dL (0.0-0.2) Aspartate Amino Transf (AST/SGOT) 11 U/L (15-37) Alanine Aminotransferase (ALT/SGPT) 20 U/L (14-59) Alkaline Phosphatase 103 U/L (46-116) Creatine Kinase 102 U/L (26-192) Troponin I Quantitative < 0.017 ng/mL (0-0.055) TX-Pje-G-Type Natriuretic Peptide 126 pg/mL (0-124) Total Protein 7.1 g/dL (6.4-8.2) Albumin 3.5 g/dL (3.4-5.0) Lipase 237 U/L (73-393) Brief Hospital Course Ms. Jiménez is a 72 old female who presented with accelerated HTN. Discharge Information Condition at Discharge: Improved, Stable Disposition/Orders: D/C to Home Dischare Medications Current Medications Lactated Ringer's 1,000 ml @ 100 mls/hr Q10H IV Last administered on 07/08/18at 00:58; Admin Dose 100 MLS/HR; Start 07/08/18 at 00:00; Stop 07/08/18 at 02:38; Status DC Clonidine HCl (Catapres Tts-2) 1 patch 1X ONCE TD Last administered on 07/08/18at 00:56; Admin Dose 1 PATCH; Start 07/08/18 at 00:15; Stop 07/08/18 at 00:16; Status DC Clonidine HCl (Catapres) 0.2 mg 1X ONCE PO Last administered on 07/08/18at 00:57; Admin Dose 0.2 MG; Start 07/08/18 at 00:15; Stop 07/08/18 at 00:16; Status DC Active Scripts Active Protonix (Pantoprazole Sodium) 40 Mg Tablet.dr 1 Tab PO DAILY 30 Days Reported Rosuvastatin Calcium 10 Mg Tablet 10 Mg PO DAILY Coq-10 (Ubidecarenone) 100 Mg Capsule 100 Mg PO DAILY Lisinopril-Hctz 10-12.5 Mg Tab (Lisinopril/Hydrochlorothiazide) 1 Each Tablet 1 Tab PO DAILY Women's Daily Multivitamin (Multivit With Calcium,Iron,Min) 1 Each Tablet 1 Each PO DAILY LAST DOSE GIVEN: DATE: TODAY TIME: AM NEXT DOSE DUE: DATE: TOMORROW TIME: AM [Estrotest] 1 Cap PO DAILY LAST DOSE GIVEN: DATE: TIME: NEXT DOSE DUE: DATE: TOMORROW TIME: AM Aspirin Ec (Aspirin) 81 Mg Tablet.dr 81 Mg PO DAILY LAST DOSE GIVEN: DATE: TODAY TIME: AM NEXT DOSE DUE: DATE: TOMORROW TIME: AM Metformin Hcl Er (Metformin Hcl) 500 Mg Tab.er.24h 500 Mg PO DAILYWBKFT LAST DOSE GIVEN: DATE: TODAY TIME: WITH BREAKFAST NEXT DOSE DUE: DATE: TOMORROW TIME: WITH BREAKFAST Dragon Disclaimer This chart was dictated in whole or in part using Voice Recognition software in a busy, high-work load, and often noisy Emergency Department environment. It may contain unintended and wholly unrecognized errors or omissions. BOB MICHAELS MD Jul 07, 2018 23:56
[2018-07-08] MEDS ORDERED: IV RINGERS SOLUTION,LACTATED 1,000 ML IV SCH
[2018-07-08] MEDS ORDERED: cloNIDine TTS-2 1 PATCH PATCH TD ONE (00:15)
[2018-07-08] MEDS ORDERED: cloNIDine HCL 0.1 MG TABLET PO ONE (00:15)
[2018-07-08 00:35] LABS: BILIRUBIN,URINE NEG (NEG); CLARITY,URINE HAZY; COLOR,URINE STRAW; GLUCOSE,URINE 500 mg/dL (NEG)
[2018-07-08 00:36] LABS: BACTERIA,URINE FEW /HPF (0-FEW); NITRITE,URINE NEG (NEG); SQUAMOUS EPITHELIAL CELL,UR OCC /LPF; UROBILINOGEN,URINE 0.2 mg/dL (0.2 mg/dL); WBC,URINE OCC /HPF (0-4)
[2018-07-08 01:06] LABS: BASO % 0 % (0-3); EOS # 0.2 x10^3/uL (0.0-0.7); EOS % 2 % (0-3); HEMATOCRIT 42.1 % (36.0-47.0); HEMOGLOBIN 13.7 g/dL (12.0-15.5); LYMPH # 1.4 x10^3/uL (1.0-4.8); LYMPH % 19 % (24-48); MEAN CORPUSCULAR HEMOGLOBIN 28 pg (25-35); MEAN CORPUSCULAR HGB CONC 33 g/dL (31-37); MEAN CORPUSCULAR VOLUME 86 fL (79-100); MONO # 0.5 x10^3/uL (0.0-1.1); MONO % 7 % (0-9); NEUT # 5.3 x10^3uL (1.8-7.7); NEUT % 72 % (31-73); PLATELET COUNT 159 x10^3/uL (140-400); RED CELL DISTRIBUTION WIDTH 14.3 % (11.5-14.5); WHITE BLOOD COUNT 7.3 x10^3/uL (4.0-11.0)
[2018-07-08 01:29] LABS: ALBUMIN 3.5 g/dL (3.4-5.0); CALCIUM 9.4 mg/dL (8.5-10.1); CREATININE 0.9 mg/dL (0.6-1.0); DIRECT BILIRUBIN 0.1 mg/dL (0.0-0.2); GFR 74.9; MAGNESIUM 1.8 mg/dL (1.8-2.4); POTASSIUM 4.2 mmol/L (3.5-5.1); TOTAL BILIRUBIN 0.4 mg/dL (0.2-1.0); TOTAL PROTEIN 7.1 g/dL (6.4-8.2)
[2018-07-08 02:00] VITALS: BP 150/74
--- NOTE | 2018-07-08 07:15 | RAD ---
EXAM: CHEST 1 VIEW History: Hypertension COMPARISON: 01/12/2018 TECHNIQUE: Single portable radiograph of the chest FINDINGS: The cardiac silhouette is unremarkable. The lungs are clear bilaterally. The costophrenic sulci are clear and well demarcated. IMPRESSION: No radiographic evidence of an acute cardiopulmonary process.
--- NOTE | 2018-07-08 09:24 | EKG ---
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
== END 2018-07-08 02:17 | disposition home or self-care (01) ==
LOC: ER 23:53
DX: I11.9 Hypertensive heart disease without heart failure (principal); E78.00 Pure hypercholesterolemia, unspecified; E11.9 Type 2 diabetes mellitus without complications; Z72.4 Inappropriate diet and eating habits; Z88.8 Allergy status to other drugs, medicaments and biological substances
CPT/HCPCS: 36415; 71045; 80048; 80076; 81001; 82550; 83690; 83735; 83880; 84443; 84484; 85025; 85379; 85610; 85730; 93005; 99285; J7120

== ENCOUNTER 2018-11-08 13:04 | Emergency (ER) | payer MEDICARE, BC ==
[~2018-11-08 13:04] MED LIST changes: -EZET10TA18 PO; +EZET10TA20 PO; +LISI1TAB23 PO; -LISI1TAB3 PO; +METF500T11 PO; -METF500T9 PO; -ROSU10TA25 PO; +ROSU10TA26 PO
--- NOTE | 2018-11-08 14:05 | PHYS DOC ---
Past History Past Medical History: Arrhythmia, CAD, Diabetes, Gallstones, High Cholesterol, Hypertension Past Surgical History: Appendectomy, Cholecystectomy, Hysterectomy Alcohol Use: None Drug Use: None Adult General Chief Complaint Chief Complaint: HYPERTENSION HPI HPI Patient is a 73-year-old female coming in with concerns about blood pressure blood pressures been as high as the 220 she reported one that was in the 230s she just got back from [place] she was at a for her sister unfortunately she went to an ER down there. Due to the same complaints and they said she was o mehdi she does have a clonidine patch on she also takes lisinopril as well. Patient does have some mild swelling of shoulder pain she says it hurts more when she moves her arm hurts to palpate the area has been there for 4 days he'll some dullness at times in that area as well not exertional in anyway no shortness of breath no headache neurologically intact as well Review of Systems Review of Systems Constitutional: Denies fever or chills [] Eyes: Denies change in visual acuity, redness, or eye pain [] Cardiovascular: No additional information not addressed in HPI [] GI: Denies abdominal pain, nausea, vomiting, bloody stools or diarrhea [] : Denies dysuria or hematuria [] Musculoskeletal: Denies back pain or joint pain [] All other systems were reviewed and found to be within normal limits, except as documented in this note. Allergies Allergies Allergies Coded Allergies Type Severity Reaction Last Updated Verified Kwaaojt-Tem-Rym Reductase Inhibitor Allergy Intermediate 01/12/18 Yes Physical Exam Physical Exam Constitutional: Well developed, well nourished, no acute distress, non-toxic appearance. [] HENT: Normocephalic, atraumatic, bilateral external ears normal, oropharynx moist, no oral exudates, nose normal. [] Eyes: PERRLA, EOMI, conjunctiva normal, no discharge. [] Neck: Normal range of motion, no tenderness, supple, no stridor. [] Cardiovascular:Heart rate regular rhythm, no murmur [] Lungs & Thorax: Bilateral breath sounds clear to auscultation [] Abdomen: Bowel sounds normal, soft, no tenderness, no masses, no pulsatile masses. [] Skin: Warm, dry, no erythema, no rash. [] Back: No tenderness, no CVA tenderness. [] Extremities: No tenderness, no cyanosis, no clubbing, ROM intact, no edema. [] Neurologic: Alert and oriented X 3, normal motor function, normal sensory function, no focal deficits noted. [] Psychologic: Affect normal, judgement normal, mood normal. [] EKG EKG []No sinus rhythm rate of 79 PVC noted no STEMI no definite ischemia was identified nonspecific changes lateral Radiology/Procedures Radiology/Procedures [] Course & Med Decision Making Course & Med Decision Making Pertinent Labs and Imaging studies reviewed. (See chart for details) []Well-appearing 73-year-old female with history of hypertension came in with elevated blood pressures at home here but pressures in the 160s on my reading when I was in the emergency room evaluating her. Plan to check basic lab work check troponin patient really is not having any symptoms of end organ damage at this time bp 130 on repeat in er recommended pmd f/u no concerning symptoms or lab findings Dragon Disclaimer Dragon Disclaimer This electronic medical record was generated, in whole or in part, using a voice recognition dictation system. Departure Departure: Impression: Primary Impression: Elevated blood pressure reading Disposition: HOME, SELF-CARE Condition: STABLE Referrals: LUCITA NORTH MD (PCP) FRANCHESCA RUSSO MD Nov 08, 2018 14:05
[2018-11-08 14:14] LABS: BASO % 0 % (0-3); EOS # 0.1 x10^3/uL (0.0-0.7); EOS % 2 % (0-3); HEMATOCRIT 41.4 % (36.0-47.0); HEMOGLOBIN 13.7 g/dL (12.0-15.5); LYMPH # 0.9 x10^3/uL (1.0-4.8); LYMPH % 15 % (24-48); MEAN CORPUSCULAR HEMOGLOBIN 29 pg (25-35); MEAN CORPUSCULAR HGB CONC 33 g/dL (31-37); MEAN CORPUSCULAR VOLUME 87 fL (79-100); MONO # 0.4 x10^3/uL (0.0-1.1); MONO % 6 % (0-9); NEUT # 4.9 x10^3uL (1.8-7.7); NEUT % 78 % (31-73); PLATELET COUNT 161 x10^3/uL (140-400); RED BLOOD COUNT 4.78 x10^6/uL (3.50-5.40); WHITE BLOOD COUNT 6.4 x10^3/uL (4.0-11.0)
[2018-11-08 14:30] LABS: ALBUMIN 3.4 g/dL (3.4-5.0); ALBUMIN/GLOBULIN RATIO 0.9 (1.0-1.7); CALCIUM 9.4 mg/dL (8.5-10.1); CREATININE 1.1 mg/dL (0.6-1.0); GFR 59.2; POTASSIUM 3.8 mmol/L (3.5-5.1); TOTAL BILIRUBIN 0.7 mg/dL (0.2-1.0); TOTAL PROTEIN 7.1 g/dL (6.4-8.2)
[2018-11-08 14:47] VITALS: BP 161/73
--- NOTE | 2018-11-09 08:09 | EKG ---
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
== END 2018-11-08 14:51 | disposition home or self-care (01) ==
LOC: ER 13:04
DX: I10 Essential (primary) hypertension (principal); I25.10 Atherosclerotic heart disease of native coronary artery without angina pectoris; E11.9 Type 2 diabetes mellitus without complications; E78.00 Pure hypercholesterolemia, unspecified; Z88.8 Allergy status to other drugs, medicaments and biological substances; Z79.899 Other long term (current) drug therapy
CPT/HCPCS: 36415; 80053; 84484; 85025; 99285

== ENCOUNTER 2019-03-17 20:54 | Emergency (ER) | payer MEDICARE, BC ==
[~2019-03-17] VITALS: Ht 162.6 cm; Wt 89.3 kg
[~2019-03-17 20:54] MED LIST changes: -MECL12.52 PO; +MECL12.573 PO
--- NOTE | 2019-03-17 20:58 | PHYS DOC ---
Past History Past Medical History: Hypertension Past Surgical History: No Surgical History Alcohol Use: None Drug Use: None Adult General Chief Complaint Chief Complaint: ".. I tripped over my Great Grand Son.. Rosey... and I had a really hard fall.. hurt my Lt. foot.. my knees.. but what really hurts is my chest...This happen while I was at [facility].. and I prayed for healing.. but I am still hurting so bad... " " I did alen a belly flop.. " HPI HPI Patient is a 73 year old female who presents with above hx and complaints of fall at [facility]. Pt. did not protect her symptoms at all, fall and had a "belly flop" like landing in attempt to avoid falling on great grandson. Pt. states complaints of marked chest pain, upper abdomen pain, bilateral knee and Lt. foot pain. Patient is able to straight leg lift. Does have findings of arthritic changes. Chest wall tenderness reproducible on palpation, side to side and posterior to anterior compression. Patient is ambulatory with a limp. She denies any loss of consciousness. Patient denies any history of immunosuppression travel or specific ill contacts. Pt. follows with Dr. Dave. Review of Systems Review of Systems Constitutional: Denies fever or chills [] Eyes: Denies change in visual acuity, redness, or eye pain [] HENT: Denies nasal congestion or sore throat [] Respiratory: Patient complains of chest wall pain Cardiovascular: No additional information not addressed in HPI [] GI: Denies abdominal pain, nausea, vomiting, bloody stools or diarrhea [] : Denies dysuria or hematuria [] Musculoskeletal: She complains of bilateral knee pain and left foot pain Integument: Denies rash or skin lesions [] Neurologic: Denies headache, focal weakness or sensory changes [] Endocrine: Denies polyuria or polydipsia [] All other systems were reviewed and found to be within normal limits, except as documented in this note. Family History Family History Noncontributory Current Medications Current Medications See nursing for home meds Allergies Allergies Allergies Coded Allergies Type Severity Reaction Last Updated Verified Cvcoarm-Okp-Nhb Reductase Inhibitor Allergy Intermediate 01/12/18 Yes Physical Exam Physical Exam Constitutional: in acute distress, non-toxic appearance. [] HENT: Normocephalic, atraumatic, bilateral external ears normal, oropharynx moist, no oral exudates, nose normal. [] Eyes: Blind Lt eye, conjunctiva normal, no discharge. [] Neck: Normal range of motion, no tenderness, supple, no stridor. [] Cardiovascular:Heart rate regular rhythm, no murmur [] Lungs & Thorax: Bilateral breath sounds equal at apexes on auscultation []Severe lower chest wall tenderness bilateral. Abdomen: Bowel sounds normal, soft, no tenderness, no masses, no pulsatile masses. [] Skin: Warm, dry, no erythema, no rash. [] Back: No tenderness, no CVA tenderness. [] Extremities: Bilateral knee and left foot tenderness, no cyanosis, no clubbing, ROM intact, no edema. Arthritic changes. Neurologic: Alert and oriented X 3, normal motor function, normal sensory function, no focal deficits noted. [] Psychologic: Affect anxious, judgement normal, mood normal. [] EKG EKG [] Radiology/Procedures Radiology/[place] [address] IMAGING REPORT Signed PATIENT: ZACHARIAH RIOS ACCOUNT: [id number] : 1945 LOCATION: ER AGE: 73 SEX: F EXAM STATUS: REG ER ORD. PHYSICIAN: BOB MICHAELS MD REASON: fall,,, continue marked chest pain, PAIN AT LEVEL OF BREASTS PROCEDURE: CT CHEST WO CONTRAST PQRS Compliance Statement: One or more of the following individualized dose reduction techniques were utilized for this examination: 1. Automated exposure control 2. Adjustment of the mA and/or kV according to patient size 3. Use of iterative reconstruction technique CT CHEST WO CONTRAST Clinical Indication: Fall, continued chest pain. Pain at the level of the breasts. Comparison: None. TECHNIQUE: Helical CT imaging of the chest is performed without IV contrast. Findings: Sensitivity is decreased without IV contrast. No acute mediastinal hematoma is identified. Small calcified left hilar lymph node. Great vessels are normal caliber. Cardiac size normal, no pericardial effusion. There is no pneumothorax. The central airways are patent. No pulmonary contusion is identified. There is mild bilateral lower lobe atelectasis, right greater than left. Tiny calcified granuloma in the lingula. There are cysts or hemangiomas in the liver, largest is in the right hepatic lobe measures 3.4 cm. These findings are stable. There are left renal cysts, incompletely imaged. No acute displaced rib fracture is identified. Thoracic spine alignment is maintained. The sternum is intact. IMPRESSION: No acute traumatic injury in the chest. Electronically signed by: Sunny Wallis MD (03/17/2019 11:38 PM) [id number] DICTATED AND SIGNED BY: SUNNY WALLIS MD DATE: 03/17/190 CC: BOB MICHAELS MD; LUCITA DAVE MD ~ [address] [address] IMAGING REPORT Signed PATIENT: ZACHARIAH RIOS ACCOUNT: [id number] : 1945 LOCATION: ER AGE: 73 SEX: F EXAM STATUS: REG ER ORD. PHYSICIAN: BOB MICHAELS MD REASON: fall PROCEDURE: ABDOMEN SUPINE & UPRIGHT ABDOMEN SUPINE UPRIGHT Clinical Indication: Fall. Comparison: CT abdomen and pelvis without contrast May 15, 2018. Findings: Stool distends the proximal colon. Nondilated air-filled small bowel loops are seen in the left abdomen and pelvis. There is air in the transverse colon. No radiopaque calculus or foreign body is seen. There is degenerative arthropathy of the hips. IMPRESSION: Nonobstructive bowel gas pattern. Electronically signed by: Sunny Wallis MD (03/17/2019 11:19 PM) [id number] DICTATED AND SIGNED BY: SUNNY WALLIS MD DATE: 03/17/19 8784 CC: BOB MICHAELS MD; LUCITA DAVE MD ~ [address] [address] IMAGING REPORT Signed PATIENT: ZACHARIAH RIOS ACCOUNT: [id number] : 1945 LOCATION: ER AGE: 73 SEX: F EXAM STATUS: REG ER ORD. PHYSICIAN: BOB MICHAELS MD REASON: fall PROCEDURE: CHEST PA & LATERAL CHEST PA LATERAL History: Fall, pain. Comparison: AP chest July 08, 2018. Findings: Tortuous thoracic aorta. Cardiac size is normal. Pulmonary vasculature is normal. There is minimal bibasilar discoid atelectasis. The lungs are otherwise clear. No pleural effusion or pneumothorax is seen. There is no acute bone abnormality. IMPRESSION: No acute cardiopulmonary process. Electronically signed by: Sunny Wallis MD (03/17/2019 11:24 PM) [id number] DICTATED AND SIGNED BY: SUNNY WALLIS MD DATE: 03/17/19 1276 CC: BOB MICHAELS MD; LUCITA DAVE MD ~ [][place] [address] IMAGING REPORT Signed PATIENT: ZACHARIAH RIOS ACCOUNT: [id number] : 1945 LOCATION: ER AGE: 73 SEX: F EXAM STATUS: REG ER ORD. PHYSICIAN: BOB MICHAELS MD REASON: fall PROCEDURE: FOOT LEFT 3V Exam: Left foot 3 views INDICATION: Fall TECHNIQUE: Frontal, lateral and oblique views of the left foot Comparisons: None FINDINGS: Bone mineralization is normal. No acute or healed fractures. Soft tissues are unremarkable. Joint spaces are well-maintained. IMPRESSION: No acute osseous abnormality. Electronically signed by: Carmella Zaldivar MD (03/17/2019 11:15 PM) [id number] DICTATED AND SIGNED BY: CARMELLA ZALDIVAR MD DATE: 03/17/19 7146 CC: BOB MICHAELS MD; LUCITA DAVE MD ~ [address] [address] IMAGING REPORT Signed PATIENT: ZACHARIAH RIOS ACCOUNT: [id number] : 1945 LOCATION: ER AGE: 73 SEX: F EXAM STATUS: REG ER ORD. PHYSICIAN: BOB MICHAELS MD REASON: fall PROCEDURE: KNEE BILAT 4V Exam: Bilateral knees 4 views INDICATION: Fall TECHNIQUE: Frontal, lateral, oblique, and sunrise views of the right and left knee Comparisons: None FINDINGS: Left knee: There is normal. No acute or healed fractures. Soft tissues are unremarkable. There is moderate osteophytic change at the patellofemoral joint. Left knee: Bone mineralization is normal. No acute or healed fractures. Soft tissues are unremarkable. There is moderate osteophytic change at the patellofemoral joint. IMPRESSION: No acute osseous abnormality of the right or left knee. Electronically signed by: Carmella Zaldivar MD (03/17/2019 11:10 PM) [id number] DICTATED AND SIGNED BY: CARMELLA ZALDIVAR MD DATE: 03/17/192309 CC: BOB MICHAELS MD; LUCITA DAVE MD ~ Course & Med Decision Making Course & Med Decision Making Pertinent Labs and Imaging studies reviewed. (See chart for details) Use ice packs as needed for the next 3 days. After 3 days if no reentry may advance to moist heat. Patient Tylenol and ibuprofen for pain. For marked pain may take Vicoprofen. Follow-up with Dr. Dave. Return if any concerns. Impression: 1. Sprain and Strain 2. Contusions. [] Dragon Disclaimer Dragon Disclaimer This electronic medical record was generated, in whole or in part, using a voice recognition dictation system. Departure Departure: Disposition: 01 HOME/RESIDENCE PRIOR TO ADM Condition: STABLE Referrals: LUCITA DAVE MD (PCP) Scripts Hydrocodone/Ibuprofen (HYDROCODONE-IBUPROFEN 7.5-200 ) 1 Each Tablet 1 TAB PO PRN Q6HRS PRN for PAIN, #30 TAB 0 Refills Prov: BOB MICHAELS MD 03/17/19 Dragon Disclaimer This chart was dictated in whole or in part using Voice Recognition software in a busy, high-work load, and often noisy Emergency Department environment. It may contain unintended and wholly unrecognized errors or omissions. BOB MICHAELS MD Mar 17, 2019 20:58
[2019-03-17] MEDS ORDERED: KETOROLAC 60 MG/2 ML VIAL. IM ONE (21:15)
[2019-03-17] MEDS ORDERED: KETOROLAC 30 MG/ML VIAL. IM ONE (21:15)
[2019-03-17] MEDS ORDERED: MORPHINE SULFATE 4 MG/ML DISP.SYRIN. SQ ONE (21:15)
--- NOTE | 2019-03-17 23:14 | RAD ---
Exam: Bilateral knees 4 views INDICATION: Fall TECHNIQUE: Frontal, lateral, oblique, and sunrise views of the right and left knee Comparisons: None FINDINGS: Left knee: There is normal. No acute or healed fractures. Soft tissues are unremarkable. There is moderate osteophytic change at the patellofemoral joint. Left knee: Bone mineralization is normal. No acute or healed fractures. Soft tissues are unremarkable. There is moderate osteophytic change at the patellofemoral joint. IMPRESSION: No acute osseous abnormality of the right or left knee. Electronically signed by: Carmella Mcdowell MD (03/17/2019 11:10 PM) [id number]
--- NOTE | 2019-03-17 23:18 | RAD ---
Exam: Left foot 3 views INDICATION: Fall TECHNIQUE: Frontal, lateral and oblique views of the left foot Comparisons: None FINDINGS: Bone mineralization is normal. No acute or healed fractures. Soft tissues are unremarkable. Joint spaces are well-maintained. IMPRESSION: No acute osseous abnormality. Electronically signed by: Carmella Mcdowell MD (03/17/2019 11:15 PM) [id number]
--- NOTE | 2019-03-17 23:22 | RAD ---
ABDOMEN SUPINE UPRIGHT Clinical Indication: Fall. Comparison: CT abdomen and pelvis without contrast May 15, 2018. Findings: Stool distends the proximal colon. Nondilated air-filled small bowel loops are seen in the left abdomen and pelvis. There is air in the transverse colon. No radiopaque calculus or foreign body is seen. There is degenerative arthropathy of the hips. IMPRESSION: Nonobstructive bowel gas pattern. Electronically signed by: Sunny Wallis MD (03/17/2019 11:19 PM) [id number]
--- NOTE | 2019-03-17 23:27 | RAD ---
CHEST PA LATERAL History: Fall, pain. Comparison: AP chest July 08, 2018. Findings: Tortuous thoracic aorta. Cardiac size is normal. Pulmonary vasculature is normal. There is minimal bibasilar discoid atelectasis. The lungs are otherwise clear. No pleural effusion or pneumothorax is seen. There is no acute bone abnormality. IMPRESSION: No acute cardiopulmonary process. Electronically signed by: Sunny Wallis MD (03/17/2019 11:24 PM) [id number]
--- NOTE | 2019-03-17 23:41 | RAD ---
PQRS Compliance Statement: One or more of the following individualized dose reduction techniques were utilized for this examination: 1. Automated exposure control 2. Adjustment of the mA and/or kV according to patient size 3. Use of iterative reconstruction technique CT CHEST WO CONTRAST Clinical Indication: Fall, continued chest pain. Pain at the level of the breasts. Comparison: None. TECHNIQUE: Helical CT imaging of the chest is performed without IV contrast. Findings: Sensitivity is decreased without IV contrast. No acute mediastinal hematoma is identified. Small calcified left hilar lymph node. Great vessels are normal caliber. Cardiac size normal, no pericardial effusion. There is no pneumothorax. The central airways are patent. No pulmonary contusion is identified. There is mild bilateral lower lobe atelectasis, right greater than left. Tiny calcified granuloma in the lingula. There are cysts or hemangiomas in the liver, largest is in the right hepatic lobe measures 3.4 cm. These findings are stable. There are left renal cysts, incompletely imaged. No acute displaced rib fracture is identified. Thoracic spine alignment is maintained. The sternum is intact. IMPRESSION: No acute traumatic injury in the chest. Electronically signed by: Sunny Wallis MD (03/17/2019 11:38 PM) [id number]
[2019-03-17] MEDS ORDERED: HYDR-1179 PO (23:57)
[2019-03-18] MEDS ORDERED: MAGNESIUM HYDROXIDE 2,400 MG/30 ML ORAL.SUSP. PO ONE
[2019-03-18 00:18] VITALS: BP 196/80
[2019-03-18] MEDS: oxyCODONE/APAP 5/325 1 TAB TABLET PO ONE ×2 (00:32)
== END 2019-03-18 00:27 | disposition home or self-care (01) ==
LOC: ER 20:54
DX: S80.02XA Contusion of left knee, initial encounter (principal); S80.01XA Contusion of right knee, initial encounter; S90.32XA Contusion of left foot, initial encounter; S90.31XA Contusion of right foot, initial encounter; S20.219A Contusion of unspecified front wall of thorax, initial encounter; I10 Essential (primary) hypertension; Z88.8 Allergy status to other drugs, medicaments and biological substances; W18.39XA Other fall on same level, initial encounter; Y93.89 Activity, other specified; Y92.89 Other specified places as the place of occurrence of the external cause; Y99.8 Other external cause status
CPT/HCPCS: 71046; 71250; 73564; 73630; 74019; 96372; 99284; J1885; J2270

== ENCOUNTER 2020-05-03 09:35 | Observation (INO) | payer MEDICARE, BC ==
[~2020-05-03] VITALS: Ht 162.6 cm; Wt 85.8 kg
[~2020-05-03 09:35] MED LIST changes: -ASPI-612 PO; +ASPI-889 PO; +LISI10TA16 PO; -LISI10TA2 PO; -MECL12.573 PO; +MECL12.582 PO; +METF-658 PO; -METF500T11 PO
--- NOTE | 2020-05-03 09:52 | PHYS DOC ---
Past History Past Medical History: Diabetes, Hypertension Past Surgical History: No Surgical History Alcohol Use: None Drug Use: None General Adult EDM: Chief Complaint: ALLERGIC REACTION HPI: HPI: 74-year-old female past medical history of diabetes, HTN and HLDhypertension presents to the ED with complaints of right upper lip swelling that started around 7 or 8 PM last night stating " I thought it was a mosquito bite," did not see any bug. Patient swelling now includes the entire upper lip and partial lower lip, states she feels as if her voice is changed/slightly muffled, complai ns of right anterior neck fullness and pruritic rash over right elbow, both inner thighs and under left breast, some relief with cortisone cream. Medications listed below. Denies any new medications in past few months. Reports " allergy," to statin medications-allergies nausea and vomiting, no associated rash. Due to this her primary care physician kept her on a statin. No prior history of angioedema, anaphylaxis, urticaria or rash involving need for epinephrine or steroids. States she had salmon yesterday and strawberry dessert, but normally tolerates strawberries. Was around dogs yesterday- unsure of any prior allergy to animals/food, etc. Losartan 50 mg twice daily Amlodipine 2.5 mg twice daily Metformin 500 mg twice daily Atorvastatin daily Clonidine patch Review of Systems: Review of Systems: Constitutional: Denies fever or chills Eyes: Denies change in visual acuity HENT: Denies nasal congestion or sore throat, denies oral lesions/erosions Respiratory: Denies cough or shortness of breath or inability to control oral secretions-no spitting or drooling Cardiovascular: Denies chest pain or edema GI: Denies abdominal pain, nausea, vomiting, bloody stools or diarrhea : Denies dysuria Musculoskeletal: Denies back pain or joint pain Integument: Denies blistering lesions or diaphoresis Neurologic: Denies headache, neck stiffness, focal weakness or sensory changes Endocrine: Denies polyuria or polydipsia Lymphatic: Denies swollen glands Psychiatric: Denies depression or anxiety Allergies: Allergies: Allergies Coded Allergies Type Severity Reaction Last Updated Verified Mmiitjj-Ceu-Kvb Reductase Inhibitor Allergy Intermediate 01/12/18 Yes Physical Exam: PE: Constitutional: Well developed, well nourished, no acute distress, non-toxic appearance. Afebrile HENT: Normocephalic, atraumatic, swelling of upper lip and left lower lip, no swelling of tongue, oropharynx pain with no edema, Mallampati 2, uvula midline, no tonsillar swelling/erythema/exudates Eyes: EOMI, conjunctiva normal, no discharge, right anterior cervical lymphadenopathy, Neck: Normal range of motion, supple, Cardiovascular: S1/2 present, regular rhythm Lungs & Thorax: Speaking in full sentences, bilateral equal chest rise, no tachypnea or increased work of breathing, clear to auscultation bilaterally, no wheezing/rales/crackles, no stridor, no drooling or tripod position, requires no supplemental oxygen, voice does not appear to be muffled Abdomen: soft, no tenderness, Skin: Warm, dry, raised erythematous lesion/wheel over right elbow, 2-3 similar wheals over both inner thigh Back: No midline tenderness, no CVA tenderness. [] Extremities: No tenderness, no cyanosis, no unilateral lower extremity edema Neurologic: Alert and oriented X 3, normal motor function, normal sensory function, no focal deficits noted. [] Psychologic: Affect normal, judgement normal, mood normal. [] EKG: EKG: Sinus bradycardia 55 bpm, left axis deviation, prolonged QTC 487, T wave in version lead III, no ST elevations or ST depressions Radiology/Procedures: Radiology/Procedures: []IMAGING REPORT Signed PATIENT: ZACHARIAH RIOS ACCOUNT: [id number] : 1945 LOCATION: ER AGE: 74 SEX: F EXAM STATUS: REG ER ORD. PHYSICIAN: ALAYNA THAO DO REASON: right neck fullness PROCEDURE: NECK SOFT TISSUE Study: XR NECK SOFT TISSUE Indication: Fullness at the right aspect of the neck. Comparison: None. Findings: Within normal limits configuration of the epiglottis and prevertebral soft tissues. No radiopaque foreign body seen within the airway or upper esophagus. No appreciable soft tissue abnormality on the AP view. Mild retrolisthesis of C4 on C5. Mild disc space narrowing at C4-C5. Facet arthrosis favored greatest at C7-T1. Impression: No radiographic abnormality to explain the patient's right neck fullness. Electronically signed by: DONNIE KAY MD (05/03/2020 10:43 AM) [facility] DICTATED AND SIGNED BY: DONNIE KAY MD DATE: 05/03/201040 CC: LUCITA NORTH MD; ALAYNA THAO DO ~MTH0 0 IMAGING REPORT Signed PATIENT: ZACHARIAH RIOS ACCOUNT: [id number] : 1945 LOCATION: ER AGE: 74 SEX: F EXAM STATUS: REG ER ORD. PHYSICIAN: ALAYNA THAO DO REASON: right neck fullness PROCEDURE: CHEST PA & LATERAL Study: XR CHEST 2V Indication: Right neck fullness Comparison: 03/17/2019 Findings: Unchanged configuration of the cardiomediastinal silhouette and mohsen. No focal airspace opacity, layering effusion or pneumothorax. Grossly intact osseous structures. Impression: No acute radiographic abnormality of the chest. No relevant change from the 03/17/2019 comparison. Electronically signed by: DONNIE KAY MD (05/03/2020 10:44 AM) [facility] DICTATED AND SIGNED BY: DONNIE KAY MD DATE: 05/03/201042 CC: LUCITA NORTH MD; ALAYNA THAO DO ~MTH0 0 Heart Score: C/O Chest Pain: No Risk Factors: Risk Factors: DM, Current or recent (<one month) smoker, HTN, HLP, family history of CAD, obesity. Risk Scores: Score 0 - 3: 2.5% MACE over next 6 weeks - Discharge Home Score 4 - 6: 20.3% MACE over next 6 weeks - Admit for Clinical Observation Score 7 - 10: 72.7% MACE over next 6 weeks - Early Invasive Strategies Course & Med Decision Making: Course & Med Decision Making Pertinent Labs and Imaging studies reviewed. (See chart for details) Concern for angioedema x 17 hours with minimal response to epinephrine, dexamethasone, Pepcid, Benadryl and TXA. Given right-sided neck fullness and history of speech changes will admit to the ICU for further medical management. Patient and her at bedside agree with this plan and she was stable at time of admission. I have spoken with the patient and/or caregivers. I have explained the patient's condition, diagnosis and treatment plan based on the information available to me at this time. I have answered the patient's and/or caregivers questions and answered any concerns. The patient and/or caregivers have as good an understanding of the patient's diagnosis, condition and treatment plan as can be expected at this point. The patient has been stabilized within the capability of the emergency department. The patient will be transported for further care and management or will be moved to an observation or inpatient service. I have communicated with the staff or medical practitioner taking over this patient's care. Critical Care: Authorized and Performed by: Alayna Thao DO Total critical care time: approximately 45 minutes Due to a high probability of clinically significant, life threatening deterioration, the patient required my highest level of preparedness to intervene emergently and I personally spent this critical care time directly and personally managing the patient. This critical care time included obtaining a history; examining the patient; pulse oximetry; ventilator management if neces damian; ordering and review of studies; arranging urgent treatment with development of a management plan; evaluation of patient's response to treatment; frequent reassessment; discussion with patient/family; and, discussions with other providers. This critical care time was performed to assess and manage the high probability of imminent, life-threatening deterioration that could result in multi-organ failure. It was exclusive of separately billable procedures and treating other patients and teaching time. Please see MDM section and the rest of the note for further information on patient assessment and treatment. Dragon Disclaimer: Dragon Disclaimer: This electronic medical record was generated, in whole or in part, using a voice recognition dictation system. Departure Departure: Impression: Primary Impression: Angio-edema Disposition: ADMITTED INPT THIS HOSP Admitting Physician: Tarah Parker Condition: CRITICAL Referrals: LUCITA NORTH MD (PCP) ALAYNA THAO DO May 03, 2020 09:52
[2020-05-03] MEDS ORDERED: DEXAMETHASONE SOD PHOS 10 MG/ML VIAL. IVP ONE (10:00)
[2020-05-03] MEDS ORDERED: FAMOTIDINE 20 MG/2 ML VIAL IVP ONE (10:00)
[2020-05-03] MEDS ORDERED: diphenhydrAMINE 50 MG/ML VIAL IVP ONE (10:00)
[2020-05-03] MEDS ORDERED: TRANEXAMIC ACID 1,000 MG in IV NORMAL SALINE 250ML 250 ML IV ONE (10:30)
[2020-05-03] MEDS ORDERED: IV NORMAL SALINE 250ML 250 ML ONE (10:42)
[2020-05-03] MEDS ORDERED: TRANEXAMIC ACID 1,000 MG/10 ML VIAL. ONE (10:42)
--- NOTE | 2020-05-03 10:45 | RAD ---
Study: XR NECK SOFT TISSUE Indication: Fullness at the right aspect of the neck. Comparison: None. Findings: Within normal limits configuration of the epiglottis and prevertebral soft tissues. No radiopaque for eign body seen within the airway or upper esophagus. No appreciable soft tissue abnormality on the AP view. Mild retrolisthesis of C4 on C5. Mild disc space narrowing at C4-C5. Facet arthrosis favored greatest at C7-T1. Impression: No radiographic abnormality to explain the patient's right neck fullness. Electronically signed by: DONNIE KAY MD (05/03/2020 10:43 AM) [facility]
--- NOTE | 2020-05-03 10:46 | RAD ---
Study: XR CHEST 2V Indication: Right neck fullness Comparison: 03/17/2019 Findings: Unchanged configuration of the cardiomediastinal silhouette and mohsen. No focal airspace opacity, layering effusion or pneumothorax. Grossly intact osseous structures. Impression: No acute radiographic abnormality of the chest. No relevant change from the 03/17/2019 comparison. Electronically signed by: DONNIE KAY MD (05/03/2020 10:44 AM) [facility]
[2020-05-03] MEDS ORDERED: IV NORMAL SALINE 1,000ML 1,000 ML IV ONE (12:45)
--- NOTE | 2020-05-03 12:55 | EKG ---
[facility] ED [facility] [place] [id number] Test Date: 2020-05-03 Test Time: 09:48:35 Pat Name: ZACHARIAH RIOS Department: Room: Gender: F Clam Treader: : 1945 Requested By: KINZA THAO Order Number: [id number] Reading MD: Measurements Intervals [place] Rate: 55 P: 24 CO: 180 QRS: -19 QRSD: 80 T: 7 QT: 506 QTc: 487 Interpretive Statements SINUS RHYTHM LEFTWARD AXIS QRS(T) CONTOUR ABNORMALITY CONSISTENT WITH ANTEROSEPTAL INFARCT PROBABLY OLD ABNORMAL ECG RI6.02 No previous ECG available for comparison
--- NOTE | 2020-05-03 19:05 | NUR ---
Pt admitted to ICU bed 3 from ER via [facility], accompanied by EMS and nursing staff. Pt able to transfer self independently from [facility] to bed, steady gait noted. VSS. Admission assessment completed. Health history and home medications reviewed with pt. Pt here for angioedema that started last night around 7pm. Pt with swelling of upper lip and minimal to left lower lip, no swelling of tongue or tonsillar area with uvula midline. Pt is able to speak in full sentences, denies increased work of breathing but does c/o feeling of neck "fullness". Pt lives at home with . SCDs for VTE. Pt UTD on Flu vaccine and due for 2nd Covid vaccine on 05/06/20. POC reviewed with pt, understanding verbalized.
--- NOTE | 2020-05-03 19:10 | NUR ---
Pt was given written information regarding hospital policies, unit procedures and contact persons. Valuables were checked and left at bedside. Dr Parker called for new orders and update on pt. Pt tolerated HS snack of Jello, Yogurt and applesauce. Call light within reach.
[2020-05-03 19:35] VITALS: BP 122/66
[2020-05-03] MEDS ORDERED: LOSA50TA14 PO (19:54)
[2020-05-03] MEDS ORDERED: CHOL200044 PO (19:54)
[2020-05-03] MEDS ORDERED: ASCO250T29 PO (19:54)
[2020-05-03] MEDS ORDERED: OMEP40CA45 PO (19:54)
[2020-05-03] MEDS ORDERED: PRED5DRO16 OS (19:54)
[2020-05-03] MEDS ORDERED: CLON1PAT3 TP (19:54)
[2020-05-03] MEDS ORDERED: AMLO2.5T5 PO (19:54)
[2020-05-03] MEDS ORDERED: UBID200C32 PO (19:54)
[2020-05-03 20:00] VITALS: BP 138/76
[2020-05-03] MEDS ORDERED: DEXTROSE 50% 25 GM / 50ML DISP.SYRIN. IV PRN (20:15)
[2020-05-03 21:00] VITALS: BP 119/74
[2020-05-03] MEDS ORDERED: INSULIN GLARGINE SYRINGE. SQ ONE (21:00)
[2020-05-03] MEDS: FAMOTIDINE 20 MG/2 ML VIAL IVP SCH (21:37)
[2020-05-03] MEDS: prednisoLONE ACETATE 1% OPHTH SUSPENSION 5ML BOTTLE. OS SCH (21:37)
[2020-05-03] MEDS: LOSARTAN 50 MG TABLET. PO SCH (21:38)
[2020-05-03 22:00] VITALS: BP 136/76
[2020-05-03] MEDS ORDERED: METF500T16 PO (22:49)
[2020-05-03 22:53] VITALS: BP 117/63
[2020-05-03] MEDS: diphenhydrAMINE 50 MG/ML VIAL IVP SCH (23:50)
[2020-05-04] VITALS (16 sets, daily range): BP systolic 116–144; BP diastolic 59–75
[2020-05-04] MEDS: diphenhydrAMINE 50 MG/ML VIAL IVP SCH ×2 (05:47→12:32)
--- NOTE | 2020-05-04 07:00 | NUR ---
Report received from Hanna CALLAHAN. Pt resting in bed, awake and alert, full head-toe assessment done, pt in no acute distress, breathing even and unlabored and on full monitors. Pt reports lip and throat swelling was her reason for presenting to ED but reports she is feeling much better and is feeling comfortable to go home today. Pt up to bedside toilet with no assistance. Pt AOX3, call light in reach
[2020-05-04] MEDS ORDERED: PANTOPRAZOLE 40 MG TABLET. PO SCH (07:30)
[2020-05-04] MEDS ORDERED: metFORMIN 500 MG TABLET PO SCH (08:00)
[2020-05-04] MEDS ORDERED: metFORMIN XR 500 MG TAB.ER.24H PO SCH (08:00)
[2020-05-04] MEDS: LOSARTAN 50 MG TABLET. PO SCH (08:31)
[2020-05-04] MEDS: FAMOTIDINE 20 MG/2 ML VIAL IVP SCH (08:32)
[2020-05-04] MEDS: prednisoLONE ACETATE 1% OPHTH SUSPENSION 5ML BOTTLE. OS SCH (08:43)
[2020-05-04] MEDS: INSULIN LISPRO 300 UNITS/3 ML VIAL. SQ SCH ×2 (08:43→12:32)
[2020-05-04] MEDS ORDERED: amLODIPine BESYLATE 2.5 MG TABLET PO SCH (09:00)
[2020-05-04] MEDS ORDERED: ASPIRIN ENTERIC COATED 81 MG TABLET.DR. PO SCH (09:00)
[2020-05-04] MEDS ORDERED: CHOLECALCIFEROL (VITAMIN D3) 1,000 UNIT TABLET PO SCH (09:00)
[2020-05-04] MEDS ORDERED: UBIDECARENONE 200 MG PO SCH (09:00)
[2020-05-04] MEDS ORDERED: DEXAMETHASONE SOD PHOS 10 MG/ML VIAL. IVP SCH (09:00)
[2020-05-04] MEDS ORDERED: ASCORBIC ACID 500 MG TABLET PO SCH (09:00)
[2020-05-04] MEDS ORDERED: ROSUVASTATIN CALCIUM 10 MG PO SCH (09:00)
--- NOTE | 2020-05-04 09:23 | NUR ---
Spoke with pharmacy regarding the crestor ordered. It is not available in the pyxis. Per pharmacy, pt will need to have it brought from home since it is non-formulary here and would be atorvastatin given but with her sensitivity/allergy to statins, it would be best to take home medication. Will check with pt if she has this medication at home
--- NOTE | 2020-05-04 15:18 | NUR ---
Pt ambulated off unit with steady gait to hospital entrance front door, here to pick her up. Pt with all belongings in hand. Pt stated understanding of all discharge instructions, scripts given, pt in no acute distress, breathing even and unlabored. No further questions at this time.
--- NOTE | 2020-05-04 15:42 | SSS ---
ADMIT DATE: 05/04/2020 HISTORY OF PRESENT ILLNESS: The patient is a 74-year-old -[place] female patient who came to the Emergency Room at [facility] with complaint of right upper lip swelling that started around 7-8 p.m. the night before. The patient states that she thought it was a mosquito bite; although, she did not see any bug. The patient's swelling included the entire upper lip and partial lower lip. States she feels as if her voice has changed slightly muffled, complaint of right anterior neck fullness and pruritic rash over her right elbow, both inner thighs and under her left breast, some relief with the cortisone cream. She was able to complete sentences. She was able to eat and drink. She denied any shortness of breath or difficulty swallowing. No changes in her medication apart from the only that she could remember was they have eaten a left over fish that was in the fridge and they were house hunting and they were exposed to some allergen in that house; although, she herself did not have any problem with that. Her was more affected by it. She has never had a history of angioneurotic edema or anaphylactic shock or urticarial rash involving the need for epinephrine or steroids. She stated that she also had a strawberry dessert, but normally tolerates the strawberry without any difficulty. She was also around dogs yesterday, unsure any prior allergy to any ___ foods. She was seen in the Emergency Room and was treated with Solu-Medrol, Benadryl as well as famotidine and she also was treated with epinephrine and was admitted to the ICU for observation where she remained stable throughout the night and throughout the day, had had no further swelling, no itching, no difficulty swallowing. She was able to eat and drink, is able to talk. Her oxygen saturation was 96%. She is hemodynamically stable and a decision was made to discharge her home. PAST MEDICAL HISTORY: Significant for hypertension, hyperlipidemia, type 2 diabetes. PAST SURGICAL HISTORY: Has cholecystectomy, appendectomy, and hysterectomy. ALLERGIES: SHE IS ALLERGIC TO STATINS. MEDICATIONS: She is currently on following medications: She is on a clonidine patch TTS-3 topically every . She is on Crestor 10 mg at bedtime, vitamin D 1000 units daily, ascorbic acid 250 mg daily, aspirin 81 mg once a day, amlodipine besylate 2.5 mg twice a day, metformin 500 mg twice a day. She is on diphenhydramine 50 mg every 6 hours, famotidine 20 mg twice a day, prednisolone 1 drop to both eyes 4 times a day, losartan potassium 50 mg twice a day. FAMILY HISTORY: She has 4 of her brothers and sisters have ALLERGIC TO LISINOPRIL developing ANGIONEUROTIC EDEMA. SOCIAL HISTORY: She is and lives with her . PHYSICAL EXAMINATION: GENERAL: On arrival to the Emergency Room, the patient looked well and was clearly in no apparent respiratory distress. No pallor, jaundice, cyanosis or thyromegaly. No jugular venous distension. No limb edema. VITAL SIGNS: Her heart rate was 77, blood pressure was 116/88, temperature was 98.5, respiratory rate 22, and oxygen saturation was 99%. HEAD, EYES, EARS, NOSE AND THROAT: Normocephalic, atraumatic. NECK: Supple. HEART: Showed normal first and second heart sounds. No gallop, rub or murmur. CHEST: Clear to auscultation. No crepitation or rhonchi. ABDOMEN: Distended, soft, nontender. NEUROLOGIC: She is blind in her left eye, but otherwise all her cranial nerves are intact. EXTREMITIES: She moves extremities without difficulty. ASSESSMENT AND PLAN: The patient remained stable throughout the overnight and throughout the day. She has had no further swelling, no itching, no shortness of breath. No cough or difficulty swallowing. When I saw her prior to discharge, she looked well and was sitting slightly propped up in bed, in no apparent distress. Her heart rate was 70, blood pressure 121/60, temperature 98.1, respiratory rate was 16, and oxygen saturation was 99%. The patient was discharged home to continue on all her medications plus a Medrol Dosepak as well as prescription for famotidine 20 mg twice a day. Advised that she can buy Benadryl [id number] and she can use it as needed if she has any itching. FINAL DISCHARGE DIAGNOSES: Some form of allergic reaction. I doubt that this is an angioneurotic edema. She is not on any SAMIRA inhibitors at the age of 74. Usually, the C1 esterase inhibitor and autosomal dominant disease that manifest early, and she has no family history. Other medical problems include hypertension, hyperlipidemia, type 2 diabetes. HAN ZHENG MD DR: DOMINICK/elmo JOB#: [id number] / [id number]
[2020-05-07] MEDS ORDERED: cloNIDine TTS-3 1 PATCH PATCH TD SCH (16:00)
== END 2020-05-04 15:20 | disposition home or self-care (01) ==
LOC: ER 09:35 → INTOOBSV 18:54 → ICU 18:54
PROVIDERS: ADMIT Internal Medicine; ATTEND Internal Medicine
DX: T78.40XA Allergy, unspecified, initial encounter (principal); T78.3XXA Angioneurotic edema, initial encounter; I10 Essential (primary) hypertension; E11.9 Type 2 diabetes mellitus without complications; E78.5 Hyperlipidemia, unspecified; Z79.84 Long term (current) use of oral hypoglycemic drugs; Z79.899 Other long term (current) drug therapy; Z90.710 Acquired absence of both cervix and uterus; Z90.49 Acquired absence of other specified parts of digestive tract; Z98.890 Other specified postprocedural states
CPT/HCPCS: 70360; 71046; 82947; 93005; 96361; 96365; 96372; 96375; 96376; 99291; G0378; J0171; J1100; J1200; J1815; J3490; J7030; J7050; G0379

== ENCOUNTER 2020-09-12 17:17 | Emergency (ER) | payer MEDICARE, BC ==
[~2020-09-12] VITALS: Ht 162.6 cm; Wt 87.4 kg
[~2020-09-12 17:17] MED LIST changes: +AMLO2.5T5 PO; +ASCO250T29 PO; +CHOL200044 PO; +CLON1PAT3 TP; +LOSA50TA14 PO; +METF500T16 PO; +OMEP40CA7 PO; +PRED5DRO16 OS; +UBID200C32 PO
[2020-09-12] MEDS ORDERED: POLY10DR3 OS (17:57)
--- NOTE | 2020-09-12 17:59 | PHYS DOC ---
Past History Past Medical History: Diabetes, High Cholesterol, Hypertension (BRENDA SMITH MD) Past Surgical History: No Surgical History, Appendectomy, Cholecystectomy, Hysterectomy (BRENDA SMITH MD) Alcohol Use: None Drug Use: None (BRENDA SMITH MD) General Adult EDM: Chief Complaint: CHOKING HPI: HPI: Patient is a 74 year old female who presents with a globus sensation after dinner tonight. States she was eating ham hockey and swallowed a piece of bone. States feels like it got lodged in her throat. She did not ever choke or feel like her breathing was compromised. She has this sensation in her throat that is still stuck there. No chest pain or abdominal pain. Has not been coughing. Has been able to drink water and swallow it without difficulty. No nausea/vomiting. Also complains of left eye discomfort and yellow drainage. This has been worse over the last week. She is blind in that eye, and this has been an issue for her in the past. (BRENDA SMITH MD) Review of Systems: Review of Systems: Constitutional: Denies fever or chills Eyes: Left eye discharge and discomfort HENT: Globus sensation in throat. Respiratory: Denies cough or shortness of breath Cardiovascular: Denies chest pain or edema GI: Denies abdominal pain, nausea, vomiting, bloody stools or diarrhea : Denies dysuria Musculoskeletal: Denies back pain or joint pain Integument: Denies rash Neurologic: Denies headache, focal weakness or sensory changes Endocrine: Denies polyuria or polydipsia Lymphatic: Denies swollen glands Psychiatric: Denies depression or anxiety (BRENDA SMITH MD) Allergies: Allergies: Allergies Coded Allergies Type Severity Reaction Last Updated Verified Htiabdv-Ufr-Wcf Reductase Inhibitor Allergy Intermediate 01/12/18 Yes (BRENDA SMITH MD) Physical Exam: PE: Constitutional: Well-appearing. Sitting upright. Also able to lay flat without distress.. [] HENT: Oropharynx clear foreign body. Some mild posterior erythema. Neck is nontender. Not painful with range of motion. Is able to swallow and keep down secretions. No stridor.. [] Eyes: Legally blind in left eye. Conjunctival edema and purulent drainage. [] Neck: Normal range of motion, no tenderness, supple, no stridor. [] Cardiovascular:Heart rate regular rhythm, no murmur [] Lungs & Thorax: Breath sounds are clear and symmetric. Work of breathing is normal. No wheezing. [] Abdomen: Abdomen is soft, nontender, nondistended. [] Skin: Warm, dry, no erythema, no rash. [] Back: No tenderness, no CVA tenderness. [] Extremities: No tenderness, no cyanosis, no clubbing, ROM intact, no edema. [] Neurologic: Alert and oriented X 3, normal motor function, normal sensory function, no focal deficits noted. [] Psychologic: Affect normal, judgement normal, mood normal. [] (RBENDA SMITH MD) Current Patient Data: Vital Signs: Vital Signs Date Time Temp Pulse Resp B/P (MAP) Pulse Ox O2 Delivery O2 Flow Rate FiO2 09/12/20 17:25 98.3 69 20 134/86 98 Room Air (BRENDA SMITH MD) EKG: EKG: [] (BRENDA SMITH MD) Radiology/Procedures: Radiology/Procedures: CT neck/soft tissues with contrast [] (BRENDA SMITH MD) Radiology/Procedures: [place] [address] IMAGING REPORT Signed PATIENT: ZACHARIAH RIOS ACCOUNT: [id number] : 1945 LOCATION: ER AGE: 74 SEX: F EXAM STATUS: REG ER ORD. PHYSICIAN: BRENDA SMITH MD REASON: globus sensation after swallowing a bone, OMNI 300, 70ml PROCEDURE: CT SOFT TISSUE NECK W/CONTRAST Exam Date: 09/12/2020 6:[address] NECK SOFT TISSUE WITH IV CONTRAST Indication: Reason: globus sensation after swallowing a bone, OMNI 300, 70ml / Spl. Instructions: / History: . Technique: CT examination of the neck was performed with intravenous contrast. One or more of the following dose reduction techniques were utilized: *Automated exposure control (AEC) *Adjustment of mA and/or kV according to patient size *Use of iterative reconstruction technique *CT scan done according to ALARA, or ALARA/IMAGE GENTLY Findings: No radiopaque foreign bodies identified. The aerodigestive structures are within normal limits. Specifically, no nasopharyngeal, base of tongue or laryngeal masses are identified. Prevertebral, nasopharyngeal, and oropharyngeal soft tissues are within normal limits. No lymphadenopathy is seen. The parotid and submandibular glands are normal. The thyroid gland is normal. Left phthisis bulbi is noted. The right orbit and orbital content are unremarkable. Limited evaluation of the brain parenchyma demonstrates no focal abnormality. Evaluation of the lung apices demonstrates no abnormalities. Degenerative changes are seen in the spine. Impression: No acute abnormality seen. No radiopaque foreign body identified. Electronically signed by: Zachary Alarcon MD (09/12/2020 8:01 PM) [facility] DICTATED AND SIGNED BY: ZACHARY ALARCON MD DATE: 09/12/201946 CC: BRENDA SMITH MD; BOB MICHAELS MD; LUCITA NORTH MD ~MTH0 0 (BOB MICHAELS MD) Heart Score: C/O Chest Pain: N/A Risk Factors: Risk Factors: DM, Current or recent (<one month) smoker, HTN, HLP, family history of CAD, obesity. Risk Scores: Score 0 - 3: 2.5% MACE over next 6 weeks - Discharge Home Score 4 - 6: 20.3% MACE over next 6 weeks - Admit for Clinical Observation Score 7 - 10: 72.7% MACE over next 6 weeks - Early Invasive Strategies (BRENDA SMITH MD) Course & Med Decision Making: Course & Med Decision Making Pertinent Labs and Imaging studies reviewed. (See chart for details) Patient is 74-year-old female who presents with a globus sensation in her throat after inadvertently swallowing a hamhock bone. On arrival is afebrile hemodynamically stable. No evidence of upper airway obstruction. Breathing comfortably and satting well. No evidence of esophageal impaction and she is able to tolerate liquids without nausea or vomiting. No evidence of esophageal rupture/perforation, no chest pain. No abdominal tenderness to suggest intra-abdominal perforation from her ingestion. She is concerned that the foreign body is sitting in her upper esophagus in her neck as she continues to have a globus sensation. I discussed options such as an observation period in the ED versus advanced imaging with CT scan. Patient states that she would much prefer to have a CT scan as she is very concerned. CT ordered. Patient will be signed out to my colleague, Dr. Prado, at the end of my shift with CT imaging and final disposition pending. Patient also complains of left-sided conjunctivitis symptoms. Will be discharged with neomycin polymycin B ophthalmic antibiotics. 620 (BRENDA SMITH MD) Course & Med Decision Making See Dr. Smith chart for detail prior shift change. Impression: 1. Foreign body sensation in throat--(swallowed part of ham bone) (BOB MICHAELS MD) Dragon Disclaimer: Dragon Disclaimer: This electronic medical record was generated, in whole or in part, using a voice recognition dictation system. (BRENDA SMITH MD) Departure Departure: Impression: Primary Impression: Conjunctivitis, left eye Additional Impressions: Globus sensation Swallowed foreign body Disposition: 30 STILL A PATIENT Condition: STABLE Referrals: LUCITA NORTH MD (PCP) Patient Instructions: Bacterial Conjunctivitis Scripts Polymyxin B Sulf/Trimethoprim (POLYMYXIN B-TMP EYE DROPS) 10 Ml Drops 1 DROP OS QID for conjunctivitis for 7 Days, #10 ML 0 Refills Prov: BRENDA SMITH MD 09/12/20 BRENDA SMITH MD Sep 12, 2020 17:59 BOB MICHAELS MD Sep 12, 2020 20:33
[2020-09-12] MEDS ORDERED: IOHEXOL 300 MG/ML 75 ML VIAL. IV ONE (18:00)
[2020-09-12 18:37] LABS: CALCIUM 9.5 mg/dL (8.5-10.1); CREATININE 0.8 mg/dL (0.6-1.0); GFR 85.3; POTASSIUM 4.5 mmol/L (3.5-5.1)
--- NOTE | 2020-09-12 20:04 | RAD ---
Exam Date: 09/12/2020 6:[address] NECK SOFT TISSUE WITH IV CONTRAST Indication: Reason: globus sensation after swallowing a bone, OMNI 300, 70ml / Spl. Instructions: / History: . Technique: CT examination of the neck was performed with intravenous contrast. One or more of the fo [facility] dose reduction techniques were utilized: *Automated exposure control (AEC) *Adjustment of mA and/or kV according to patient size *Use of iterative reconstruction technique *CT scan done according to ALARA, or ALARA/IMAGE GENTLY Findings: No radiopaque foreign bodies identified. The aerodigestive structures are within normal limits. Specifically, no nasopharyngeal, base of tongu e or laryngeal masses are identified. Prevertebral, nasopharyngeal, and oropharyngeal soft tissues ar e within normal limits. No lymphadenopathy is seen. The parotid and submandibular glands are normal. The thyroid gland is normal. Left phthisis bulbi is noted. The right orbit and orbital content ar e unremarkable. Limited evaluation of the brain parenchyma demonstrates no focal abnormality. Evalua tion of the lung apices demonstrates no abnormalities. Degenerative changes are seen in the spine. Impression: No acute abnormality seen. No radiopaque foreign body identified. Electronically signed by: Chidi Alarcon MD (09/12/2020 8:01 PM) [facility]
[2020-09-12 20:40] VITALS: BP 129/80
== END 2020-09-12 20:45 | disposition home or self-care (01) ==
LOC: ER 17:17
DX: T18.108A Unspecified foreign body in esophagus causing other injury, initial encounter (principal); R09.89 Other specified symptoms and signs involving the circulatory and respiratory systems; H10.32 Unspecified acute conjunctivitis, left eye; F45.8 Other somatoform disorders; E11.9 Type 2 diabetes mellitus without complications; E78.5 Hyperlipidemia, unspecified; I10 Essential (primary) hypertension; Z90.49 Acquired absence of other specified parts of digestive tract; Z90.710 Acquired absence of both cervix and uterus; X58.XXXA Exposure to other specified factors, initial encounter; Y93.89 Activity, other specified; Y92.89 Other specified places as the place of occurrence of the external cause; Y99.8 Other external cause status
CPT/HCPCS: 36415; 70491; 80048; 99284; Q9967

== ENCOUNTER → 2021-04-05 | Outpatient (CLI) | payer MEDICARE, BC, OTHER ==
[~2021-04-05] MED LIST changes: -LISI1TAB23 PO; +LISI1TAB35 PO; +POLY10DR3 OS
--- NOTE | 2021-04-05 17:03 | RAD ---
Exam: XR KNEE 1-2 VIEWS, XR KNEE_AP BILAT STANDING History: Bilateral knee pain. Comparison: 03/17/2019 Findings: 3 views of bilateral knees demonstrates bilateral tricompartmental osteophytes. No acute fracture or dislocation. Minimal narrowing at the right medial tibiofemoral compartment. No significant effusion. No focal soft tissue swelling. Impression: 1. Bilateral knee osteoarthritis with tricompartmental osteophytes. Electronically signed by: Eduardo Yang MD (04/05/2021 5:00 PM) [id number]
== END ==
LOC: RAD 11:52
PROVIDERS: ATTEND Orthopaedic Surgery Sports Medicine
DX: M17.0 Bilateral primary osteoarthritis of knee (principal); M25.761 Osteophyte, right knee; M25.762 Osteophyte, left knee
CPT/HCPCS: 73565; 73560-50